=== PATIENT | male | born 1935 | race Caucasian/White ===

== ENCOUNTER → 2016-07-21 | Outpatient (CLI) | payer MEDICARE ==
[~2016-07-21] MED LIST: AMBIEN10 MG PO; ANTIVERT25 MG PO; ASPIRIN81 M1 PO; B121000 MCG/2 IM; BICALUTAMIDE50 MG PO; CAL MAG ZINC PO; CAL-MAG TABLET1 EACH PO; CHILDREN'S CHEW81 MG PO; CITALOPRAM20 MG PO; CYMBALTA30 M1 PO; Catapres-Tts 10.1 MG PO; DELTASONE5 MG PO; FLAX SEED OIL1000 M2 PO; FLAX SEED OIL1000 MG PO; FLEXERIL5 MG PO; HYDRALAZINE HCL50 MG PO; HYDRALAZINE HYD50 MG PO; HYDROCODON-ACETAMINO; LAMICTAL150 MG PO; LISINOPRIL40 MG PO; LOPRESSOR100 MG PO; METFORMIN HCL500 MG PO; METFORMIN500 MG PO; METOPROLOL100 MG PO; MULTIPLE VITAMI1 TA3 PO; MULTIVITAMINS1 EACH PO; NATURE'S BLEND F1 MG PO; NORCO 5-325 TA1 EACH PO; PANTOPRAZOLE SO40 MG PO; PANTOPRAZOLE SOD DR; POTASSIUM99 M3 PO; PROTONIX40 MG PO; SIMVASTATIN40 MG PO; SINGULAIR10 MG PO; TEMAZEPAM15 MG PO; TEMAZEPAM30 MG PO; TERAZOSIN HCL5 M1 PO; TERAZOSIN HYDROC5 MG PO; VICODIN 5/500 505 MG PO; VITAMIN D1000 IU PO; VOLTAREN50 M1 PO
== END | disposition home or self-care (01) ==
LOC: LAB 09:29
DX: C61 Malignant neoplasm of prostate (principal); E11.59 Type 2 diabetes mellitus with other circulatory complications; I25.10 Atherosclerotic heart disease of native coronary artery without angina pectoris

== ENCOUNTER → 2016-11-16 | Outpatient (CLI) | payer MEDICARE ==
[2016-11-16 09:44] LABS: BASO % 0.3 % (0.0-1.0); EOS # 0.3 10*3/uL (0.0-0.4); EOS % 4.2 % (1.0-4.0); HEMATOCRIT 37.8 % (42.0-52.0); HEMOGLOBIN 12.3 g/dl (14.0-18.0); LYMPH # 1.7 10*3/uL (1.3-4.4); LYMPH % 21.4 % (27.0-41.0); MEAN CELL VOLUME 93.8 fl (80.0-94.0); MEAN CORPUSCULAR HGB 30.5 pg (27.0-31.0); MEAN CORPUSCULAR HGB CONC 32.5 g/dl (33.0-37.0); MEAN PLATELET VOLUME 8.7 fl (9.6-12.3); MONO # 0.5 10*3/uL (0.1-1.0); NEUT # 5.4 10*3/uL (2.3-7.9); PLATELET COUNT AUTOMATED 202 10*3/uL (130-400); RED BLOOD COUNT 4.03 10*6/uL (4.50-5.90); RED CELL DISTRI WIDTH 14.3 % (0-14.5); WHITE BLOOD COUNT 7.9 10*3/uL (4.8-10.8)
[2016-11-16 10:14] LABS: ALBUMIN 3.7 gm/dl (3.1-4.5); BILIRUBIN, TOTAL 0.5 mg/dl (0.2-1.0); POTASSIUM 3.9 mmol/L (3.5-5.1)
== END | disposition home or self-care (01) ==
LOC: LAB 09:20
PROVIDERS: Internal Medicine Hematology & Oncology
DX: C61 Malignant neoplasm of prostate (principal); E11.59 Type 2 diabetes mellitus with other circulatory complications; I25.10 Atherosclerotic heart disease of native coronary artery without angina pectoris

== ENCOUNTER → 2016-12-17 | Outpatient (CLI) | payer MEDICARE | END | disposition home or self-care (01) | LOC: LAB 08:49 | DX: C61 Malignant neoplasm of prostate (principal) ==

== ENCOUNTER 2017-06-29 09:59 | Inpatient (IN) | payer MEDICARE ==
[~2017-06-29] VITALS: Ht 198.1 cm; Wt 79.4 kg
[2017-06-29] VITALS (9 sets, daily range): BP systolic 153–193; BP diastolic 81–103
--- NOTE | ~2017-06-29 | PR ---
[place], [place] PROGRESS NOTE NAME: GLENYS GARDINER JR [facility] #: [id number] UNIT #: [id number] ROOM: 523 DOCTOR: MARIAM MEJIA MD BIRTHDATE: [birth year] DOS: SUBJECTIVE: The patient is doing fine without any complaints. Denies any chest pains, palpitations. OBJECTIVE: VITAL SIGNS: Graphic trend shows a pressure 148/54, pulse of 56, respirations 20, temperature 98.1. LUNGS: Clear. HEART: Regular. ABDOMEN: Obese. EXTREMITIES: Without any edema. ASSESSMENT AND PLAN: 1. Vertigo from vestibular neuronitis, which seems to be resolving. 2. Benign hypertension, poorly controlled, adjustments in medicines were made and the pressures have improved. 3. Nonsustained ventricular tachycardia. Magnesium and potassium levels are pending. The patient is ordered a consultation with Dr. Paiz. He does have history of coronary disease and is on beta blockers which are being continued. 4. Type 2 diabetes mellitus, insulin-dependent. Blood sugars on the low side, possibly from a stricter diet here. We will discontinue Amaryl and metformin. MARIAM MEJIA MD CM:PNTRANS [id number] MARIAM MEJIA MD 07/02/17 0939 interface
--- NOTE | ~2017-06-29 | CON ---
[place], [place] REPORT OF CONSULTATION [facility]: [id number] UNIT #: [id number] ROOM: 523 DOCTOR: JASVIR CORBIN MD BIRTHDATE: [birth year] DOS: HISTORY OF PRESENT ILLNESS: This is a very pleasant 82-year-old -[place] gentleman with a history of essential hypertension, type 2 diabetes mellitus and prostate cancer. He has never had a heart attack, heart failure, any rhythm disorder of the heart, stroke, COPD or kidney problems. He had a Lexiscan Cardiolite study done recently and it was negative. He also had an echocardiogram. I saw him in my office just a few weeks ago. He was admitted to the hospital because of being unsteady and off balance. He had almost fallen but did not hurt himself. He had no spinning sensation, did not have any palpitations. He did feel a little nauseated at that time and also was little clammy, but without any ringing in the ears or spinning sensation. He has not had any PND, orthopnea, or swelling of the lower extremity and has not had any palpitations. I was asked to see him because of 6 beat monomorphic ventricular tachycardia, rate of about 130 beats per minute. PHYSICAL EXAMINATION: GENERAL: This is a patient who is a very pleasant, alert, oriented. He is very charming, good complexion, no thyromegaly or finger clubbing. VITAL SIGNS: Pulse is 72 regular, blood pressure 172/93 and now it is 145/75. NECK: JVP is normal. There is no carotid bruit. HEART: There is no cardiomegaly. Auscultation reveals no murmurs or rubs. EXTREMITIES: He has no edema in the lower extremity. Pedal pulses are palpable. RESPIRATORY: Percussion note is normal and auscultation with just a few crackles in the left lower zone, which improved with deep breaths. No chest wall tenderness. DIAGNOSTIC STUDIES: An ECG on admission showed normal sinus rhythm and a normal pattern and the monitor has shown rare PVCs and one 6-beat monomorphic ventricular tachycardia, as I mentioned above. Potassium was over . Magnesium was 1.8. IMPRESSION: This patient had a very short nonsustained ventricular tachycardia. I believe this has no clinical significance and does not require any further workup. I thank you for this consult. [place], [place] REPORT OF CONSULTATION NAME: ABDIFATAH WHITLEYGLENYS UNIT #: [id number] ROOM: 523 DOCTOR: JASVIR CORBIN MD BIRTHDATE: [birth year] JASVIR CORBIN MD CM:CONSTR:REPORT OF CONSULTATION 1850 07/02/17 7594 interface
--- NOTE | ~2017-06-29 | WRIGHTHP ---
[place], [place] PATIENT HISTORY AND PHYSICAL EXAM NAME: GLENYS GARDINER JR [facility] #: [id number] UNIT #: [id number] ROOM: 523 DOCTOR: MARIAM MEJIA MD BIRTHDATE: [birth year] DOS: 06/29/2017 HISTORY OF PRESENT ILLNESS: This patient is very well known to us. He states that he was fine until he went to bed yesterday evening. He woke up in the middle of the night to go to the bathroom, had a severe hot flash and then he became extremely dizzy and had to hold onto the bed to walk to the bathroom, said he really could not walk and finally this persisted during the night into the morning and so he decided to come in to the emergency room. He denies having any chest pains, palpitations, not have any fever or chills, does not have any abdominal pain, nausea, any emesis. Does have a slight cough. PAST MEDICAL HISTORY: Significant for: 1. Benign hypertension. 2. Hospitalization in 2016 with similar episode of dizziness. 3. CA prostate, was on Lupron. 4. Type 2 diabetes mellitus, non-insulin dependent. 5. Recent negative stress test. MEDICATIONS: Aspirin 81, vitamin D 400 units twice a day, citalopram 20 daily, ____ B12 1000 mcg daily, glimepiride 2 b.i.d., metformin 500 q.i.d., metoprolol 25 b.i.d., Protonix 40 daily, simvastatin 40 daily, terazosin 5 mg twice a day. SOCIAL HISTORY: Nonsmoker, does not use any alcohol. Lives at home with his . PHYSICAL EXAMINATION: GENERAL: He is awake and alert and oriented this morning, sitting up and trying to get washed up this morning. He states that his dizziness is almost completely gone. VITAL SIGNS: Blood pressure is 146/82, pulse of 68, respirations 20, temperature 98.0. NECK: Supple. HEENT: Ears do not show any evidence of fluid or serous otitis media. LUNGS: Diminished breath sounds. HEART: Regular. ABDOMEN: Obese. EXTREMITIES: Without any edema. LABORATORY DATA: WBC count is normal at 8.8, hemoglobin 12.9, hematocrit 39.3, platelets 258. Lactic acid 2.1. Comprehensive glucose 154, BUN 16, creatinine 1.19. Electrolytes normal. CT of the head shows small vessel disease. ASSESSMENT AND PLAN: 1. Dizziness with inability to ambulate. The patient has been admitted. PT/OT has been consulted. 2. Dizziness with vertigo-like symptoms most likely acute vestibular neuronitis, most likely viral in nature. This could explain the elevated lactic acid. IV fluids were given. Lactic acid has come down. It is self-limiting illness. No need for any other treatment. 3. Poorly controlled hypertension. Medications were restarted this morning. [place], [place] PATIENT HISTORY AND PHYSICAL EXAM NAME: GLENYS GARDINER JR UNIT #: [id number] ROOM: 523 DOCTOR: MARIAM MEJIA MD BIRTHDATE: [birth year] The pressures within normal limits. 4. Type 2 diabetes mellitus, non-insulin dependent. Blood sugars have been checked and they are controlled. MARIAM MEJIA MD CM:HISPHYS:PATIENT HISTORY AND PHYSICAL EXAMINATION 0829 [id number] MARIAM MEJIA MD 07/01/17 1047 interface
--- NOTE | ~2017-06-29 | PR ---
[place], [place] PROGRESS NOTE NAME[id number] UNIT #: [id number] ROOM: 523 DOCTOR: MARIAM MEJIA MD BIRTHDATE: [birth year] DOS: 07/03/2017 SUBJECTIVE: The patient is not having any complaints, did have a restful night. I appreciate Dr. Paiz's input. OBJECTIVE: VITAL SIGNS: Blood pressure is 148/64, pulse of 52, respirations 16, temperature 98. LUNGS: Clear. HEART: Regular. ABDOMEN: Obese, soft. EXTREMITIES: Without any edema. ASSESSMENT AND PLAN: 1. Benign hypertension, controlled. 2. Nonsustained ventricular tachycardia, no workup planned. Appreciate Dr. Paiz's input. 3. Type 2 diabetes mellitus, non-insulin dependent. Blood sugars continued to be on the low side. The meds on hold here. We will restart when he goes home. 4. Dizziness and vertigo-like symptoms from vestibular neuronitis, which is resolved. MARIAM MEJIA MD CM:PNTRANS 0739 [id number] MARIAM MEJIA MD 07/03/17 1051 interface
--- NOTE | ~2017-06-29 | PR ---
[place], [place] PROGRESS NOTE [id number] UNIT #: [id number] ROOM: 523 DOCTOR: MARIAM MEJIA MD BIRTHDATE: [birth year] DOS: 07/01/2017 SUBJECTIVE: The patient has had noticed increasing blood pressure during the night. OBJECTIVE: VITAL SIGNS: Graphic trend this morning shows a pressure of 148/70, pulse of 76, respirations 18, temperature 98. LUNGS: Clear. HEART: Regular. ABDOMEN: Obese, soft. EXTREMITIES: Without any edema. ASSESSMENT AND PLAN: 1. Vertigo, possibly from vestibular neuronitis. The patient is on Antivert and this most likely is a viral etiology and should resolve on its own and his symptoms are improving. 2. Benign hypertension, poorly controlled. Readjust medications. 3. History of coronary artery disease, no recent complaints of chest pain. MARIAM MEJIA MD CM:PNTRANS 0849 [id number] MARIAM MEJIA MD 07/01/17 0959 interface
--- NOTE | ~2017-06-29 | DS ---
[place], [place] DISCHARGE SUMMARY [facility]: [id number] UNIT #: [id number] ROOM: 523 DOCTOR: MARIAM MEJIA MD BIRTHDATE: [birth year] DOS: 07/03/2017 DIAGNOSES: 1. Vertigo from vestibular neuronitis, resolved. 2. Benign hypertension, poorly controlled. 3. Nonsustained ventricular tachycardia. 4. CA prostate. 5. Type 2 diabetes mellitus, non-insulin dependent, with hypoglycemia. 6. Negative recent stress test. HOSPITAL COURSE: This patient is 82 years old, presents with complaints of extreme dizziness and inability to walk. Please refer to H and P for details. After admission, he was found to have vestibular neuronitis, which is most likely a benign self-limiting viral illness which did resolve on its own. The patient was noted to have extreme high blood pressures and so adjustments in medicines were made, which has controlled it. Sugars have been running low, his anti-diabetics were put on hold. He developed a 6-beat monomorphic ventricular tachycardia. Magnesium and potassium levels were normal. The patient was seen by Dr. Paiz, suggested no further workup or new medications. This morning, the patient is stable. The plan is to discharge to home and follow up as an outpatient. DISCHARGE MEDICATIONS: Amlodipine 10 daily, metformin 500 q.i.d., terazosin 5 b.i.d., simvastatin 40 daily, Protonix 40 daily, citalopram 20 daily, aspirin 81 daily, multivitamin 1 tablet daily, metoprolol 25 b.i.d., vitamin B12 1000 units daily, vitamin D 400 units daily, glimepiride 2 mg b.i.d. His anti-diabetics have been restarted since he is going home and his diet may not be that strict. His CT of the head was negative here. MARIAM MEJIA MD CM:DISCHHORTENSIA 0743 5 MARIAM MEJIA MD 07/03/17803 interface
[2017-06-29 11:03] LABS: BASO % 0.2 % (0.0-1.0); EOS # 0.2 10*3/uL (0.0-0.4); EOS % 2.6 % (1.0-4.0); HEMATOCRIT 39.3 % (42.0-52.0); HEMOGLOBIN 12.9 g/dl (14.0-18.0); LYMPH # 1.8 10*3/uL (1.3-4.4); LYMPH % 20.1 % (27.0-41.0); MEAN CORPUSCULAR HGB 30.2 pg (27.0-31.0); MEAN CORPUSCULAR HGB CONC 32.8 g/dl (33.0-37.0); MEAN PLATELET VOLUME 8.9 fl (9.6-12.3); MONO # 0.5 10*3/uL (0.1-1.0); MONO % 5.6 % (3.0-9.0); NEUT # 6.2 10*3/uL (2.3-7.9); NEUT % 71.3 % (47.0-73.0); PLATELET COUNT AUTOMATED 248 10*3/uL (130-400); RED BLOOD COUNT 4.27 10*6/uL (4.50-5.90); RED CELL DISTRI WIDTH 13.7 % (0-14.5); WHITE BLOOD COUNT 8.8 10*3/uL (4.8-10.8)
[2017-06-29 11:12] LABS: ACT PARTIAL THROMBO TIME 21.6 SECONDS (20.8-31.5)
[2017-06-29 11:19] LABS: ALBUMIN 4.1 gm/dl (3.1-4.5); ALKALINE PHOSPHATASE 121 U/L (45-117); BUN 16 mg/dl (7-24); CHLORIDE 107 mmol/L (98-107); CREATININE 1.19 mg/dL (0.70-1.30); LIPASE 86 U/L (73-393); POTASSIUM 4.1 mmol/L (3.5-5.1); SGOT/AST 16 IU/L (3-35); SGPT/ALT 21 U/L (12-78); SODIUM 139 mmol/L (136-145); TOTAL PROTEIN 7.7 gm/dL (6.4-8.2); TROPONIN I < 0.015 ng/ml (<0.045)
[2017-06-29 12:58] LABS: BILIRUBIN NEGATIVE (NEGATIVE); BLOOD NEGATIVE (NEGATIVE); CLARITY CLEAR (CLEAR); COLOR YELLOW (YELLOW); GLUCOSE NEGATIVE (NEGATIVE); KETONE NEGATIVE (NEGATIVE); LEUKO ESTERASE NEGATIVE (NEGATIVE); NITRITE NEGATIVE (NEGATIVE); UROBILINOGEN 0.2 E.U./dl (0.2-1.0)
[2017-06-29] MEDS ORDERED: METOPROLOL25 MG PO (14:39)
[2017-06-29] MEDS ORDERED: B12,B-12,B 12500 MC1 PO (16:02)
[2017-06-29] MEDS ORDERED: VITAMIN D3400 UNIT PO (16:04)
[2017-06-29] MEDS ORDERED: AMARYL2 MG PO (16:05)
[2017-06-30] VITALS: BP 159/81
[2017-06-30 06:30] VITALS: BP 138/88
[2017-06-30 08:00] VITALS: BP 146/82
[2017-06-30 10:18] VITALS: BP 138/88
[2017-06-30 16:00] VITALS: BP 177/83
[2017-06-30 20:00] VITALS: BP 178/88
[2017-07-01] VITALS: BP 165/71
[2017-07-01 12:00] VITALS: BP 136/67
[2017-07-01 16:00] VITALS: BP 140/65
[2017-07-01 20:00] VITALS: BP 145/72
[2017-07-02] VITALS: BP 162/82; BP 172/79
[2017-07-02 04:00] VITALS: BP 148/54
[2017-07-02 08:12] VITALS: BP 157/77
[2017-07-02 12:37] VITALS: BP 150/72
[2017-07-02 16:00] VITALS: BP 145/75
[2017-07-02 20:21] VITALS: BP 141/73
[2017-07-03] VITALS: BP 148/64
[2017-07-03] MEDS ORDERED: AMLODIPINE BESY10 MG PO (07:38)
== END 2017-07-03 09:40 | disposition home or self-care (01) | DRG 149 ==
LOC: ED 09:59 → EDHOLD 12:32 → 5E 12:32
PROVIDERS: Emergency Medicine
DX: H81.20 Vestibular neuronitis, unspecified ear (principal); I47.2 Ventricular tachycardia; E11.649 Type 2 diabetes mellitus with hypoglycemia without coma; C61 Malignant neoplasm of prostate; B34.9 Viral infection, unspecified; I10 Essential (primary) hypertension; I25.10 Atherosclerotic heart disease of native coronary artery without angina pectoris; R26.81 Unsteadiness on feet; Z88.0 Allergy status to penicillin; Z79.82 Long term (current) use of aspirin; Z79.84 Long term (current) use of oral hypoglycemic drugs; Z79.899 Other long term (current) drug therapy

== ENCOUNTER → 2017-07-18 | Outpatient (CLI) | payer MEDICARE ==
[~2017-07-18] MED LIST changes: +AMARYL2 MG PO; +AMLODIPINE BESY10 MG PO; +B12,B-12,B 12500 MC1 PO; +METOPROLOL25 MG PO; +VITAMIN D3400 UNIT PO
[2017-07-18 11:17] LABS: BASO % 0.3 % (0.0-1.0); EOS # 0.3 10*3/uL (0.0-0.4); EOS % 3.3 % (1.0-4.0); HEMATOCRIT 36.4 % (42.0-52.0); HEMOGLOBIN 12.2 g/dl (14.0-18.0); LYMPH % 20.7 % (27.0-41.0); MEAN CELL VOLUME 92.9 fl (80.0-94.0); MEAN CORPUSCULAR HGB 31.1 pg (27.0-31.0); MEAN CORPUSCULAR HGB CONC 33.5 g/dl (33.0-37.0); MEAN PLATELET VOLUME 9.3 fl (9.6-12.3); MONO # 0.6 10*3/uL (0.1-1.0); MONO % 6.3 % (3.0-9.0); NEUT # 6.5 10*3/uL (2.3-7.9); PLATELET COUNT AUTOMATED 254 10*3/uL (130-400); RED BLOOD COUNT 3.92 10*6/uL (4.50-5.90); RED CELL DISTRI WIDTH 13.4 % (0-14.5); WHITE BLOOD COUNT 9.4 10*3/uL (4.8-10.8)
[2017-07-18 11:52] LABS: ALKALINE PHOSPHATASE 120 U/L (45-117); BUN 19 mg/dl (7-24); CHLORIDE 108 mmol/L (98-107); CREATININE 1.28 mg/dL (0.70-1.30); POTASSIUM 4.1 mmol/L (3.5-5.1); SGOT/AST 15 IU/L (3-35); SGPT/ALT 19 U/L (12-78); SODIUM 138 mmol/L (136-145); TOTAL PROTEIN 7.3 gm/dL (6.4-8.2)
== END | disposition home or self-care (01) ==
LOC: LAB 10:18
PROVIDERS: Internal Medicine Hematology & Oncology
DX: C61 Malignant neoplasm of prostate (principal)

== ENCOUNTER → 2017-08-29 | Outpatient (CLI) | payer MEDICARE ==
[2017-08-29 12:52] LABS: BASO % 0.3 % (0.0-1.0); EOS # 0.4 10*3/uL (0.0-0.4); EOS % 3.5 % (1.0-4.0); HEMATOCRIT 39.4 % (42.0-52.0); HEMOGLOBIN 12.4 g/dl (14.0-18.0); LYMPH # 1.7 10*3/uL (1.3-4.4); MEAN CELL VOLUME 94.7 fl (80.0-94.0); MEAN CORPUSCULAR HGB 29.8 pg (27.0-31.0); MEAN CORPUSCULAR HGB CONC 31.5 g/dl (33.0-37.0); MEAN PLATELET VOLUME 9.5 fl (9.6-12.3); MONO # 0.8 10*3/uL (0.1-1.0); MONO % 7.9 % (3.0-9.0); NEUT # 7.1 10*3/uL (2.3-7.9); NEUT % 70.8 % (47.0-73.0); PLATELET COUNT AUTOMATED 250 10*3/uL (130-400); RED BLOOD COUNT 4.16 10*6/uL (4.50-5.90); RED CELL DISTRI WIDTH 13.8 % (0-14.5); WHITE BLOOD COUNT 10.1 10*3/uL (4.8-10.8)
[2017-08-29 13:22] LABS: ALBUMIN 3.8 gm/dl (3.1-4.5); BILIRUBIN, DIRECT 0.2 mg/dL (0.0-0.2); CREATININE 1.46 mg/dL (0.70-1.30); TOTAL PROTEIN 7.1 gm/dL (6.4-8.2)
== END | disposition home or self-care (01) ==
LOC: LAB 11:57
DX: C61 Malignant neoplasm of prostate (principal); E11.59 Type 2 diabetes mellitus with other circulatory complications; I25.10 Atherosclerotic heart disease of native coronary artery without angina pectoris

== ENCOUNTER 2017-09-10 07:03 | Inpatient (IN) | payer MEDICARE ==
[~2017-09-10] VITALS: Ht 167.6 cm; Wt 77.1 kg
[2017-09-10] VITALS (7 sets, daily range): BP systolic 142–172; BP diastolic 67–81
--- NOTE | ~2017-09-10 | WRIGHTHP ---
[place], [place] PATIENT HISTORY AND PHYSICAL EXAM NAME: GLENYS GARDINER JR [facility] #: [id number] UNIT #: [id number] ROOM: 408 DOCTOR: MARIAM MEJIA MD BIRTHDATE: [birth year] DOS: HISTORY OF PRESENT ILLNESS: The patient is 82-year-old. The patient is very well known to us. The patient states that for the last few weeks, he has been increasingly tired after a new medication was started for CA prostate. He also is not allowed to eat 2 hours before and 2 hours after the medicine is taken every day, so his appetite is extremely poor. Yesterday, his was unable to wake him up, so ambulance was called and he was found to be quite hypoglycemic. The family thought he was having a stroke because he had confusion and slurred speech. EMT found out that his blood sugar was in the 50s, was transferred to the ER where he continued to remain in the low 50s at times, so the patient was admitted. He also had an elevated white cell count. This morning, he looks tired, does not have any chest pains or palpitations, does not have any fever or chills, does not have any abdominal pain, nausea, any emesis. PAST MEDICAL HISTORY: significant for: 1. CA prostate with recurrence. 2. Benign hypertension. 3. Type 2 diabetes mellitus, non-insulin dependent. 4. History of nonsustained V-tach. 5. History of vestibular neuronitis. MEDICATIONS: That he is currently on are Zytiga 2 hours after, 2 hours before, aspirin 81 daily, vitamin D 400 units twice a day, citalopram 20 daily, diltiazem 60 b.i.d., glimepiride 2 mg b.i.d., meclizine 12.5 t.i.d., metformin 500 q.i.d., metoprolol 25 b.i.d., multivitamin 1 tablet daily, Protonix 40 daily, prednisone 5 daily, simvastatin 40 daily, terazosin 5 mg b.i.d. SOCIAL HISTORY: Nonsmoker, does not use any alcohol. OBJECTIVE EXAMINATION: GENERAL: He is awake and alert and oriented. His affect seems to be slightly flat. VITAL SIGNS: Blood pressure is 118/61, pulse of 70s, respirations 18, temperature 98.5. LUNGS: Clear. HEART: Regular. ABDOMEN: Obese, soft, nontender. EXTREMITIES: Without any edema. ASSESSMENT AND PLAN: 1. Type 2 diabetes mellitus, non-insulin dependent, with severe hypoglycemia from poor p.o. intake. The patient's metformin and Amaryl were discontinued and IV fluids were given. Blood sugars have come up into the 200s. We will start a low dose of Amaryl today. 2. Elevated white cell count, low grade fever, meeting sepsis criteria. Awaiting urine and blood cultures. The patient is placed on Levaquin. 3. Cancer of prostate, most likely has underlying urinary tract infection. Continue home medications. 4. Benign hypertension, controlled. [place], [place] PATIENT HISTORY AND PHYSICAL EXAM NAME: GLENYS GARDINER JR UNIT #: [id number] ROOM: [facility] DOCTOR: MARIAM MEJIA MD BIRTHDATE: [birth year] MARIAM MEJIA MD CM:HISPHYS:PATIENT HISTORY AND PHYSICAL EXAMINATION 0750 0830 MARIAM MEJIA MD 09/11/17 0829 interface
--- NOTE | ~2017-09-10 | PR ---
[place], [place] PROGRESS NOTE NAME: GLENYS GARDINER JR [facility] #: [id number] UNIT #: [id number] ROOM: 408 DOCTOR: MARIAM MEJIA MD BIRTHDATE: [birth year] DOS: 09/13/2017 SUBJECTIVE: The patient is sitting up in a chair. He did walk with therapy and was not as tired as yesterday. OBJECTIVE: VITAL SIGNS: Graphic trend shows a pressure of 164/77, pulse of 74, respirations 16, temperature 98.3. LUNGS: Clear. HEART: Regular. ABDOMEN: Soft, nontender. EXTREMITIES: Without any edema. LABORATORY DATA: White cell count is slightly elevated at 15.5, but then the cultures so far are negative including blood and urine. Glucose 122, BUN 25, creatinine 0.09, sodium 138, potassium 4.0, chloride 108. WBC count is 15.5, hemoglobin 10.4, platelets 377. ASSESSMENT AND PLAN: 1. Type 2 diabetes mellitus with severe hypoglycemia. This has resolved. Blood sugar was in the low to high 100s, restarted his home medication. 2. Elevated white cell count of unknown etiology. Blood cultures and urine culture have been negative. The patient will be switched to p.o. antibiotics and plan to discharge him to home today. 3. Adult failure to thrive. The patient to continue therapy at home. 4. CA prostate, recurrence on chemotherapy. Follow up with Dr. Barbosa. MARIAM MEJIA MD CM:PNTRANS 0820 0934 MARIAM MEJIA MD 09/13/17 1314 interface
--- NOTE | ~2017-09-10 | DS ---
[place], [place] DISCHARGE SUMMARY NAME: GLENYS GARDINER JR [facility] #: [id number] UNIT #: [id number] ROOM: 408 DOCTOR: MARIAM MEJIA MD BIRTHDATE: [birth year] DOS: 09/13/2017 DIAGNOSES: 1. Type 2 diabetes mellitus with severe hypoglycemia. 2. Adult failure to thrive. 3. Elevated white cell count with negative cultures, sepsis ruled out. 4. Recurrent cancer of prostate, on chemotherapy. 5. Benign hypertension. MEDICATIONS: Same as on discharge, only new prescription given was Cipro 500 b.i.d. for 5 days. HOSPITAL COURSE: The patient is 82-year-old. The patient is very well known to us. He was started on a new medication for CA prostate and he was advised not to eat before the medication was started and also for 2 hours after the medicine was taken in the morning. His appetite has been extremely poor since the medicine was started. His noted that it was difficult to wake him up and ambulance was called. They found out that he was hypoglycemic, was transferred to the Emergency Room, after evaluation he was admitted. His blood sugar remained in the low 50s here in the Emergency Room. After admission, the patient was placed on IV fluids. His anti-diabetics were held. His appetite seems to be improving after admission. He had an elevated white cell count with lactic acidosis. Lactic acid levels have normalized. White cell count has not normalized. The cultures of both urine and blood have come back negative. The patient does not have a fever, does not appear toxic. His blood sugars did bounce back up into the 400s. His home medications were restarted and it is controlled this morning in the low 100s. The plan therefore is to discharge him to home to be followed as an outpatient. PT/OT consultation was obtained and he has agreed to have home PT, OT. MARIAM MEJIA MD CM:DISCHARG 0823 5 MARIAM MEJIA MD 09/13/1715 interface
--- NOTE | ~2017-09-10 | PR ---
[place], [place] PROGRESS NOTE NAME: GLENYS GARDINER JR UNIT #: [id number] ROOM: 408 DOCTOR: MARIAM MEJIA MD BIRTHDATE: [birth year] DOS: 09/12/2017 SUBJECTIVE: The patient appears quite tired this morning. He states that he does not have much energy. OBJECTIVE: VITAL SIGNS: Blood pressure is 157/84, pulse of 109, respirations 20, temperature 98.3. LUNGS: Diminished breath sounds, clear. HEART: Regular. ABDOMEN: Obese, soft. EXTREMITIES: Without any edema. ASSESSMENT AND PLAN: 1. Type 2 diabetes mellitus with hypoglycemia, was restarted on the Amaryl. Blood sugars in the 134 this morning. The patient is stable in that regards. 2. Adult failure to thrive. PT/OT evaluation will be obtained. The patient was advised for rehab placement, but he declined. We will await further therapy evaluation to see whether he would be a candidate for either home therapy or long-term placement. 3. Elevated white cell count with lactic acidosis. Lactic acidosis is corrected. White cell count has come down. Cultures are negative. MARIAM MEJIA MD CM:PNTRANS 1 MARIAM MEJIA MD 09/12/1701 interface
[2017-09-10 07:42] LABS: BASO % 0.3 % (0.0-1.0); EOS # 0.1 10*3/uL (0.0-0.4); HEMATOCRIT 35.5 % (42.0-52.0); HEMOGLOBIN 11.5 g/dl (14.0-18.0); LYMPH # 0.9 10*3/uL (1.3-4.4); LYMPH % 6.9 % (27.0-41.0); MEAN CELL VOLUME 93.7 fl (80.0-94.0); MEAN CORPUSCULAR HGB 30.3 pg (27.0-31.0); MEAN CORPUSCULAR HGB CONC 32.4 g/dl (33.0-37.0); MONO # 0.8 10*3/uL (0.1-1.0); MONO % 5.9 % (3.0-9.0); NEUT # 11.7 10*3/uL (2.3-7.9); NEUT % 85.2 % (47.0-73.0); PLATELET COUNT AUTOMATED 256 10*3/uL (130-400); RED BLOOD COUNT 3.79 10*6/uL (4.50-5.90); RED CELL DISTRI WIDTH 14.2 % (0-14.5); WHITE BLOOD COUNT 13.7 10*3/uL (4.8-10.8)
[2017-09-10 08:01] LABS: ALBUMIN 2.9 gm/dl (3.1-4.5); ALKALINE PHOSPHATASE 125 U/L (45-117); BUN 22 mg/dl (7-24); CHLORIDE 104 mmol/L (98-107); CREATININE 1.47 mg/dL (0.70-1.30); POTASSIUM 3.8 mmol/L (3.5-5.1); SGOT/AST 29 IU/L (3-35); SGPT/ALT 23 U/L (12-78); SODIUM 137 mmol/L (136-145); TOTAL PROTEIN 7.7 gm/dL (6.4-8.2)
[2017-09-10 08:05] LABS: TROPONIN I < 0.015 ng/ml (<0.045)
[2017-09-10] MEDS ORDERED: ZYTIGA250 M1 PO (10:11)
[2017-09-10] MEDS ORDERED: PREDNISONE5 MG PO (10:12)
[2017-09-10] MEDS ORDERED: DILTIAZEM60 MG PO (10:20)
[2017-09-10] MEDS ORDERED: MECLIZINE HYD12.5 MG PO (11:07)
[2017-09-10 15:59] LABS: BILIRUBIN NEGATIVE (NEGATIVE); BLOOD 2+ (NEGATIVE); CLARITY SL CLOUDY (CLEAR); COLOR YELLOW (YELLOW); GLUCOSE 1+ (NEGATIVE); KETONE NEGATIVE (NEGATIVE); LEUKO ESTERASE 3+ (NEGATIVE); NITRITE NEGATIVE (NEGATIVE); PH 5.5 (5.0-9.0); SPECIFIC GRAVITY <= 1.005 (1.005-1.030)
[2017-09-10 16:09] LABS: BACTERIA 4+; RBC TNTC rbc/hpf (0-2); WBC TNTC wbc/hpf (0-5)
[2017-09-11] VITALS: BP 118/61
[2017-09-11 06:34] LABS: BASO # 0.1 10*3/uL (0.0-0.1); BASO % 0.4 % (0.0-1.0); EOS # 0.6 10*3/uL (0.0-0.4); EOS % 5.4 % (1.0-4.0); HEMATOCRIT 32.6 % (42.0-52.0); HEMOGLOBIN 10.5 g/dl (14.0-18.0); LYMPH # 1.4 10*3/uL (1.3-4.4); LYMPH % 11.6 % (27.0-41.0); MEAN CELL VOLUME 93.4 fl (80.0-94.0); MEAN CORPUSCULAR HGB 30.1 pg (27.0-31.0); MEAN CORPUSCULAR HGB CONC 32.2 g/dl (33.0-37.0); MEAN PLATELET VOLUME 9.1 fl (9.6-12.3); MONO % 8.4 % (3.0-9.0); NEUT # 8.8 10*3/uL (2.3-7.9); NEUT % 73.7 % (47.0-73.0); PLATELET COUNT AUTOMATED 295 10*3/uL (130-400); RED BLOOD COUNT 3.49 10*6/uL (4.50-5.90); RED CELL DISTRI WIDTH 14.2 % (0-14.5); WHITE BLOOD COUNT 11.9 10*3/uL (4.8-10.8)
[2017-09-11 07:07] LABS: BUN 20 mg/dl (7-24); CHLORIDE 110 mmol/L (98-107); CREATININE 1.19 mg/dL (0.70-1.30); POTASSIUM 4.2 mmol/L (3.5-5.1); SODIUM 139 mmol/L (136-145)
[2017-09-11 08:00] VITALS: BP 154/65
[2017-09-11 12:00] VITALS: BP 148/66
[2017-09-11 16:00] VITALS: BP 166/76
[2017-09-11 20:00] VITALS: BP 176/75
[2017-09-12] VITALS: BP 157/81
[2017-09-12 08:00] VITALS: BP 146/79
[2017-09-12 12:00] VITALS: BP 139/64
[2017-09-12 16:00] VITALS: BP 139/90
[2017-09-12 20:00] VITALS: BP 118/70
[2017-09-13 00:34] VITALS: BP 164/77
[2017-09-13 07:00] LABS: BASO # 0.1 10*3/uL (0.0-0.1); BASO % 0.5 % (0.0-1.0); EOS # 0.7 10*3/uL (0.0-0.4); EOS % 4.3 % (1.0-4.0); HEMOGLOBIN 10.4 g/dl (14.0-18.0); LYMPH % 13.1 % (27.0-41.0); MEAN CELL VOLUME 92.5 fl (80.0-94.0); MEAN CORPUSCULAR HGB 30.1 pg (27.0-31.0); MEAN CORPUSCULAR HGB CONC 32.5 g/dl (33.0-37.0); MEAN PLATELET VOLUME 8.7 fl (9.6-12.3); MONO # 0.9 10*3/uL (0.1-1.0); MONO % 5.6 % (3.0-9.0); NEUT # 11.7 10*3/uL (2.3-7.9); NEUT % 75.8 % (47.0-73.0); PLATELET COUNT AUTOMATED 377 10*3/uL (130-400); RED BLOOD COUNT 3.46 10*6/uL (4.50-5.90); RED CELL DISTRI WIDTH 13.9 % (0-14.5); WHITE BLOOD COUNT 15.5 10*3/uL (4.8-10.8)
[2017-09-13 07:33] LABS: BUN 25 mg/dl (7-24); CHLORIDE 108 mmol/L (98-107); CREATININE 1.09 mg/dL (0.70-1.30); SODIUM 138 mmol/L (136-145)
[2017-09-13 08:00] VITALS: BP 136/76
[2017-09-13] MEDS ORDERED: CIPRO500 MG PO (08:12)
== END 2017-09-13 11:13 | disposition home or self-care (01) | DRG 638 ==
LOC: ED 07:03 → EDHOLD 08:33 → 4E 08:33
PROVIDERS: Emergency Medicine; Internal Medicine
DX: E11.649 Type 2 diabetes mellitus with hypoglycemia without coma (principal); E87.2 Acidosis; G92 Toxic encephalopathy; C61 Malignant neoplasm of prostate; I10 Essential (primary) hypertension; D72.829 Elevated white blood cell count, unspecified; Z95.1 Presence of aortocoronary bypass graft; R62.7 Adult failure to thrive; Z79.899 Other long term (current) drug therapy; Z88.0 Allergy status to penicillin; Z82.49 Family history of ischemic heart disease and other diseases of the circulatory system; Z82.3 Family history of stroke

== ENCOUNTER → 2017-10-04 | Outpatient (CLI) | payer MEDICARE ==
[~2017-10-04] MED LIST changes: +CIPRO500 MG PO; +DILTIAZEM60 MG PO; +MECLIZINE HYD12.5 MG PO; +PREDNISONE5 MG PO; +ZYTIGA250 M1 PO
[2017-10-04 10:21] LABS: BASO % 0.2 % (0.0-1.0); EOS # 0.5 10*3/uL (0.0-0.4); EOS % 6.1 % (1.0-4.0); HEMATOCRIT 35.5 % (42.0-52.0); HEMOGLOBIN 11.2 g/dl (14.0-18.0); LYMPH # 1.7 10*3/uL (1.3-4.4); LYMPH % 21.4 % (27.0-41.0); MEAN CELL VOLUME 96.7 fl (80.0-94.0); MEAN CORPUSCULAR HGB 30.5 pg (27.0-31.0); MEAN CORPUSCULAR HGB CONC 31.5 g/dl (33.0-37.0); MONO # 0.5 10*3/uL (0.1-1.0); MONO % 5.9 % (3.0-9.0); NEUT # 5.3 10*3/uL (2.3-7.9); NEUT % 66.2 % (47.0-73.0); PLATELET COUNT AUTOMATED 228 10*3/uL (130-400); RED BLOOD COUNT 3.67 10*6/uL (4.50-5.90); RED CELL DISTRI WIDTH 15.3 % (0-14.5)
[2017-10-04 10:50] LABS: ALBUMIN 3.3 gm/dl (3.1-4.5); ALKALINE PHOSPHATASE 127 U/L (45-117); BILIRUBIN, DIRECT 0.1 mg/dL (0.0-0.2); BUN 14 mg/dl (7-24); CHLORIDE 110 mmol/L (98-107); CREATININE 1.04 mg/dL (0.70-1.30); POTASSIUM 3.7 mmol/L (3.5-5.1); SGOT/AST 24 IU/L (3-35); SGPT/ALT 36 U/L (12-78); SODIUM 144 mmol/L (136-145)
== END | disposition home or self-care (01) ==
LOC: LAB 09:31
PROVIDERS: Internal Medicine Hematology & Oncology
DX: Z51.11 Encounter for antineoplastic chemotherapy (principal); C61 Malignant neoplasm of prostate; I25.10 Atherosclerotic heart disease of native coronary artery without angina pectoris; E11.59 Type 2 diabetes mellitus with other circulatory complications

== ENCOUNTER 2017-11-05 19:25 | Emergency (ER) | payer MEDICARE ==
[~2017-11-05] VITALS: Ht 172.7 cm; Wt 77.1 kg
[2017-11-05 19:44] LABS: BASO % 0.2 % (0.0-1.0); EOS # 0.3 10*3/uL (0.0-0.4); EOS % 4.2 % (1.0-4.0); HEMATOCRIT 35.9 % (42.0-52.0); HEMOGLOBIN 11.8 g/dl (14.0-18.0); LYMPH # 2.2 10*3/uL (1.3-4.4); LYMPH % 26.6 % (27.0-41.0); MEAN CELL VOLUME 95.2 fl (80.0-94.0); MEAN CORPUSCULAR HGB 31.3 pg (27.0-31.0); MEAN CORPUSCULAR HGB CONC 32.9 g/dl (33.0-37.0); MONO # 0.6 10*3/uL (0.1-1.0); MONO % 7.5 % (3.0-9.0); NEUT # 4.9 10*3/uL (2.3-7.9); NEUT % 61.1 % (47.0-73.0); PLATELET COUNT AUTOMATED 226 10*3/uL (130-400); RED BLOOD COUNT 3.77 10*6/uL (4.50-5.90); RED CELL DISTRI WIDTH 14.5 % (0-14.5); WHITE BLOOD COUNT 8.1 10*3/uL (4.8-10.8)
[2017-11-05 19:54] LABS: ACT PARTIAL THROMBO TIME 20.7 SECONDS (20.8-31.5); INTERNATIONAL NORM RATIO 0.9 (2.0-3.5)
[2017-11-05 20:01] LABS: ALBUMIN 3.6 gm/dl (3.1-4.5); ALKALINE PHOSPHATASE 159 U/L (45-117); BUN 13 mg/dl (7-24); CHLORIDE 110 mmol/L (98-107); CPK 41 U/L (39-308); CREATININE 1.07 mg/dL (0.70-1.30); POTASSIUM 3.7 mmol/L (3.5-5.1); SGOT/AST 13 IU/L (3-35); SGPT/ALT 17 U/L (12-78); SODIUM 142 mmol/L (136-145); TOTAL PROTEIN 6.6 gm/dL (6.4-8.2)
[2017-11-05 20:06] LABS: TROPONIN I < 0.015 ng/ml (<0.045)
[2017-11-05 21:44] VITALS: BP 172/88
== END 2017-11-05 22:05 | disposition home or self-care (01) ==
LOC: ED 19:25
PROVIDERS: Student in an Organized Health Care Education/Training Program
DX: S80.12XA Contusion of left lower leg, initial encounter (principal); I10 Essential (primary) hypertension; E11.649 Type 2 diabetes mellitus with hypoglycemia without coma; Z98.890 Other specified postprocedural states; Z95.1 Presence of aortocoronary bypass graft; Z96.651 Presence of right artificial knee joint; Z79.899 Other long term (current) drug therapy; Z88.0 Allergy status to penicillin; Z79.82 Long term (current) use of aspirin; V89.2XXA Person injured in unspecified motor-vehicle accident, traffic, initial encounter; Y93.89 Activity, other specified; Y92.89 Other specified places as the place of occurrence of the external cause; Y99.9 Unspecified external cause status

== ENCOUNTER → 2018-01-16 | Outpatient (CLI) | payer MEDICARE ==
[~2018-01-16] MED LIST changes: -AMARYL2 MG PO; +AMARYL4 MG PO
[2018-01-16 11:04] LABS: BASO % 0.6 % (0.0-1.0); EOS # 0.4 10*3/uL (0.0-0.4); EOS % 5.9 % (1.0-4.0); HEMATOCRIT 34.2 % (42.0-52.0); LYMPH # 1.8 10*3/uL (1.3-4.4); LYMPH % 28.2 % (27.0-41.0); MEAN CELL VOLUME 95.8 fl (80.0-94.0); MEAN CORPUSCULAR HGB 30.8 pg (27.0-31.0); MEAN CORPUSCULAR HGB CONC 32.2 g/dl (33.0-37.0); MONO # 0.5 10*3/uL (0.1-1.0); MONO % 7.9 % (3.0-9.0); NEUT # 3.6 10*3/uL (2.3-7.9); NEUT % 57.2 % (47.0-73.0); PLATELET COUNT AUTOMATED 255 10*3/uL (130-400); RED BLOOD COUNT 3.57 10*6/uL (4.50-5.90); RED CELL DISTRI WIDTH 12.7 % (0-14.5); WHITE BLOOD COUNT 6.3 10*3/uL (4.8-10.8)
[2018-01-16 11:29] LABS: BUN 13 mg/dl (7-24); CHLORIDE 112 mmol/L (98-107); CREATININE 1.13 mg/dL (0.70-1.30); POTASSIUM 3.6 mmol/L (3.5-5.1); SGOT/AST 14 IU/L (3-35); SGPT/ALT 18 U/L (12-78); SODIUM 144 mmol/L (136-145)
[2018-01-16 11:31] LABS: ALBUMIN 3.6 gm/dl (3.1-4.5); ALKALINE PHOSPHATASE 98 U/L (45-117)
== END | disposition home or self-care (01) ==
LOC: LAB 10:31
PROVIDERS: Internal Medicine Hematology & Oncology
DX: C61 Malignant neoplasm of prostate (principal); E11.59 Type 2 diabetes mellitus with other circulatory complications; I25.10 Atherosclerotic heart disease of native coronary artery without angina pectoris; Z51.11 Encounter for antineoplastic chemotherapy

== ENCOUNTER → 2018-04-10 | Outpatient (CLI) | payer MEDICARE ==
[2018-04-10 11:21] LABS: BASO % 0.3 % (0.0-1.0); EOS # 0.4 10*3/uL (0.0-0.4); EOS % 4.6 % (1.0-4.0); HEMATOCRIT 36.4 % (42.0-52.0); HEMOGLOBIN 11.3 g/dl (14.0-18.0); LYMPH # 1.5 10*3/uL (1.3-4.4); LYMPH % 16.8 % (27.0-41.0); MEAN CELL VOLUME 94.5 fl (80.0-94.0); MEAN CORPUSCULAR HGB 29.4 pg (27.0-31.0); MEAN PLATELET VOLUME 9.3 fl (9.6-12.3); MONO # 0.6 10*3/uL (0.1-1.0); MONO % 7.1 % (3.0-9.0); NEUT # 6.4 10*3/uL (2.3-7.9); NEUT % 70.9 % (47.0-73.0); PLATELET COUNT AUTOMATED 291 10*3/uL (130-400); RED BLOOD COUNT 3.85 10*6/uL (4.50-5.90); RED CELL DISTRI WIDTH 14.3 % (0-14.5)
[2018-04-10 11:36] LABS: ALBUMIN 3.4 gm/dl (3.1-4.5); BUN 17 mg/dl (7-24); CHLORIDE 110 mmol/L (98-107); POTASSIUM 3.9 mmol/L (3.5-5.1); SODIUM 140 mmol/L (136-145)
[2018-04-10 11:42] LABS: ALKALINE PHOSPHATASE 111 U/L (45-117); CREATININE 1.08 mg/dL (0.70-1.30); SGOT/AST 15 IU/L (3-35); SGPT/ALT 16 U/L (12-78); TOTAL PROTEIN 7.1 gm/dL (6.4-8.2)
== END | disposition home or self-care (01) ==
LOC: LAB 10:37
DX: Z51.11 Encounter for antineoplastic chemotherapy (principal); C61 Malignant neoplasm of prostate; E11.9 Type 2 diabetes mellitus without complications; I25.10 Atherosclerotic heart disease of native coronary artery without angina pectoris

== ENCOUNTER 2018-05-20 06:03 | Inpatient (IN) | payer MEDICARE ==
[2018-05-20] VITALS (8 sets, daily range): BP systolic 147–184; BP diastolic 82–110
[~2018-05-20] VITALS: Ht 170.1 cm
--- NOTE | ~2018-05-20 | PR ---
[place], [place] PROGRESS NOTE NAME: GLENYS GARDINER JR [facility] #: [id number] UNIT #: [id number] ROOM: 403 DOCTOR: MARIAM MEJIA MD BIRTHDATE: [birth year] DOS: 05/24/2018 SUBJECTIVE: The patient is doing well, does not have any new complaints. He has a slight cough, did have a low grade fever during the night. OBJECTIVE: VITAL SIGNS: Blood pressure is 152/90, pulse of 88, respirations 20, temperature 97.9. LUNGS: Diminished breath sounds, but clear. HEART: Regular. ABDOMEN: Obese, soft. EXTREMITIES: Without any edema. LABORATORY DATA: Glucose is 152, BUN is 18, creatinine 0.96, sodium 139, potassium 3.0, chloride 109, bicarbonate 19, calcium 8.4. WBC count is 12.0, hemoglobin 8.7, hematocrit 26.3, platelets 201. White cell count is down to 12,000 this morning. Left hand arthritis, severe osteoarthritis of the first MCP was noted. Uric acid was 3.8. ASSESSMENT AND PLAN: 1. Acute pancreatitis, resolved. 2. Acute cholecystitis, on antibiotics. White cell count has come down to 12,000. 3. 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 The patient is stable. We will be discharging to home today. Follow up as an outpatient. MARIAM MEJIA MD CM:PNTRANS 0820 1046 MARIAM MEJIA MD 05/24/18 1046 interface
--- NOTE | ~2018-05-20 | PR ---
[place], [place] PROGRESS NOTE NAME: GLENYS GARDINER JR [facility] #: [id number] UNIT #: [id number] ROOM: 403 DOCTOR: MARIAM MEJIA MD BIRTHDATE: [birth year] DOS: 05/22/2018 SUBJECTIVE: The patient is resting comfortably, some decreased abdominal pain. Does not have any new complaints. OBJECTIVE: VITAL SIGNS: Blood pressure is 136/72, pulse of 70, respirations 18, temperature 98.2. LUNGS: Clear. HEART: Regular. ABDOMEN: Soft. There is still some tenderness in the right and left upper quadrants. LABORATORY DATA: This morning shows glucose of 146, BUN 17, creatinine 0.90. Sodium 139, potassium 3.6, chloride 108, bicarbonate 21. Protein 6.2, albumin 2.6. SGOT, SGPT was normal. Amylase 230, lipase 208. WBC count is 18.8. ASSESSMENT AND PLAN: 1. Acute pancreatitis, improving. Advance the diet to soft. We will discontinue IV fluids. 2. Acute cholecystitis, on IV Rocephin and Flagyl to the regimen. Consult Dr. Fall awaiting Dr. Ruvalcaba's input. 3. Benign hypertension, controlled. 4. Type 2 diabetes mellitus. Blood sugars being covered. This morning was 135, which hold off on and his oral antidiabetics until his diet becomes normal. MARIAM MEJIA MD CM:PNTRANS 0830 0955 MARIAM MEJIA MD 05/22/18 0957 interface
--- NOTE | ~2018-05-20 | PR ---
[place], [place] PROGRESS NOTE NAME: [facility]ER JR [facility] [id number] UNIT #: [id number] ROOM: 403 DOCTOR: MARIAM MEJIA MD BIRTHDATE: [birth year] DOS: 05/23/2018 SUBJECTIVE: The patient is doing well, does not have any new complaints of abdominal pain, but he has developed left hand pain. He has the hard time lifting and moving and doing any activities with the hand, started during the night. Does not have any fever or chills. OBJECTIVE: VITAL SIGNS: Graphic trend shows a pressure 137/73, pulse of 80, respirations 18, and temperature 97.7. LUNGS: Clear. HEART: Regular. ABDOMEN: Obese. Some minimal tenderness in the right upper quadrant. EXTREMITIES: Without any edema. LABORATORY DATA: White cell count is down to 15.4. Hepatic functions are all within normal limits. Amylase and lipase is also normal. ASSESSMENT AND PLAN: 1. Acute pancreatitis, possibly from underlying gallbladder sludge moving down, this has resolved. 2. Acute cholecystitis, on IV Flagyl and IV Rocephin. White cell count has finally down to 15,000. We will continue the antibiotics. Once the white cell count comes down to below 12,000, I plan to discharge the patient. 3. Acute gout of the left hand. X-ray of the left hand is ordered along with uric acid level. I placed the patient on Toradol IV this morning and colchicine. MARIAM MEJIA MD CM:PNTRANS 0831 0848 MARIAM MEJIA MD 05/23/18 0849 interface
--- NOTE | ~2018-05-20 | DS ---
[place], [place] DISCHARGE SUMMARY NAME: GLENYS GARDINER JR [facility] #: [id number] UNIT #: [id number] ROOM: 403 DOCTOR: MARIAM MEJIA MD BIRTHDATE: [birth year] DOS: 05/24/2018 DIAGNOSES: 1. Acute cholecystitis. 2. Acute pancreatitis, resolved. 3. Benign hypertension. 4. Type 2 diabetes mellitus. 5. Acute tracheobronchitis. 6. Coronary artery disease with history of stent placement in 2018. 7. CA prostate, on Lupron. 8. History of coronary artery disease, status post coronary artery bypass graft. HOSPITAL COURSE: An 83 years old patient with severe abdominal pain. On Tuesday, he had called the office, had acute cough with bronchitis symptoms and a fever. He wanted a Z-SILVANA, which was prescribed. He took 1 pill of that. Tuesday evening, he had severe abdominal pain and then Tuesday he had multiple emesis, so he decided to come into the Emergency Room where he was evaluated and was found to have acute pancreatitis, acute cholecystitis and was admitted, placed on IV antibiotics and IV fluids, n.p.o. and labs showed some improvement in his amylase and lipase and it normalized. Surgical consultation and Dr. Ruvalcaba was consulted. They do not feel that the gallbladder is the source of infection; they feel it is Z-SILVANA causing pancreatitis. The patient is stable and improved. White cell count has slowly come down to 12,000. He does have low-grade fever, but the cough is possibly from underlying bronchitis. Chest x-ray is pending today. He also has hypokalemia, supplementation has been given and will continue prescription as an outpatient. Since he is fairly stable and is eating well and is not having any new complaints, so plans to discharge him to home today to be followed as an outpatient. The patient developed acute gout of the left hand. X-ray showed severe osteoarthritis. Uric acid was normal. The patient after was started on colchicine and Toradol has improvement in his left hand pain and swelling. MEDICATIONS ON DISCHARGE: Colchicine 0.6 mg twice a day, Cipro 500 b.i.d. for 7 days, potassium 10 daily for 10 days, metformin 500 b.i.d., terazosin 5 b.i.d., simvastatin 40 daily, Protonix 40 daily, citalopram 20 daily, aspirin 81 daily, multivitamin one tablet daily, metoprolol 25 b.i.d., vitamin B12 1000 mcg daily, vitamin D 400 units twice a day, glimepiride 4 mg daily, diltiazem 60 b.i.d., meclizine 12.5 t.i.d. p.r.n. [place], [place] DISCHARGE SUMMARY NAME: GLENYS GARDINER JR UNIT #: [id number] ROOM: [facility] DOCTOR: MARIAM MEJIA MD BIRTHDATE: [birth year] MARIAM MEJIA MD CM:IDA [phone] MARIAM MEJIA MD 05/24/18 1552 interface
--- NOTE | ~2018-05-20 | WRIGHTHP ---
[place], [place] PATIENT HISTORY AND PHYSICAL EXAM NAME: GLENYS GARDINER JR [facility] #: [id number] UNIT #: [id number] ROOM: 403 DOCTOR: MARIAM MEJIA MD BIRTHDATE: [birth year] DOS: 05/20/2018 HISTORY OF PRESENT ILLNESS: The patient is 83 years old, very well known to us. The patient states that he had some URI symptoms with cough and productive sputum for the last few days. He called the office on Tuesday and a prescription for Z-SILVANA was given, but Tuesday evening, he noted that he had significant abdominal pain and he had multiple emesis on Tuesday morning. He finally decided to come into the Emergency Room where he was evaluated and was found to have acute pancreatitis. The patient this morning feels much better. Denies having any chest pains, palpitations, or shortness of breath. He still has minimal abdominal discomfort. PAST MEDICAL HISTORY: Significant for; 1. CA prostate, on Lupron. 2. Coronary artery disease with history of stent placement in 03/2018. 3. History of coronary artery disease, status post CABG in 2003. 4. Type 2 diabetes mellitus. 5. Benign hypertension. 6. History of nonsustained ventricular tachycardia. MEDICATIONS: He is currently on are vitamin D 400 units b.i.d., aspirin 81 daily, citalopram 20 daily, diltiazem 60 b.i.d., glimepiride 4 daily, meclizine 12.5 t.i.d. p.r.n., metformin 500 q.i.d., metoprolol 25 b.i.d., multivitamin one tablet daily, Protonix 40 daily, simvastatin 40 daily, terazosin 5 b.i.d. SOCIAL HISTORY: Nonsmoker, does not use any alcohol. Lives at home with his . PHYSICAL EXAMINATION: GENERAL: He is awake and alert and oriented, is resting comfortably in no distress. VITAL SIGNS: Blood pressure is 144/90, pulse of 95, respirations 18, temperature 97.9. LUNGS: Diminished breath sounds, clear. HEART: Regular. ABDOMEN: Obese, some diffuse tenderness present mostly in the right upper quadrant. EXTREMITIES: Without any edema. LABORATORY DATA: WBC count is 17.7. Lactic acid 3.1. Urine, 1+ ketones. Comprehensive glucose 282, BUN 16, creatinine 1.27. Electrolytes normal. SGOT 55, SGPT 40. Amylase 1923. Lipase 26,646. CT of the abdomen and pelvis shows pancreatitis of the head of the pancreas, fatty infiltration of the liver. Gallbladder screening shows gallbladder wall edema with cholecystitis. ASSESSMENT AND PLAN: 1. The patient with acute pancreatitis. Keep patient n.p.o., IV fluids have been ordered. Follow amylase and lipase closely. Consult Dr. Ruvalcaba. 2. Acute cholecystitis, most likely had sludge, which caused the acute pancreatitis. A surgical consultation will be obtained with Dr. Fall. [place], [place] PATIENT HISTORY AND PHYSICAL EXAM NAME: GLENYS GARDINER JR UNIT #: [id number] ROOM: [facility] DOCTOR: MARIAM MEJIA MD BIRTHDATE: [birth year] 3. Benign hypertension, controlled. 4. Type 2 diabetes mellitus. Since he is n.p.o., continue blood sugars q.i.d. with coverage. Hold off on his home medications. 5. Coronary artery disease, history of recent stent placement. No evidence of congestive heart failure. Slow IV hydration to be continued. Since the lipase has come down from 26,000-3000 range this morning, place the patient on a clear liquid diet. MARIAM MEJIA MD CM:HISPHYS:PATIENT HISTORY AND PHYSICAL EXAMINATION [id number] MARIAM MEJIA MD 05/21/18 1212 interface
[2018-05-20 07:05] LABS: BASO % 0.2 % (0.0-1.0); EOS # 0.1 10*3/uL (0.0-0.4); EOS % 0.3 % (1.0-4.0); HEMATOCRIT 39.6 % (42.0-52.0); HEMOGLOBIN 12.8 g/dl (14.0-18.0); LYMPH # 1.3 10*3/uL (1.3-4.4); LYMPH % 7.4 % (27.0-41.0); MEAN CELL VOLUME 92.3 fl (80.0-94.0); MEAN CORPUSCULAR HGB 29.8 pg (27.0-31.0); MEAN CORPUSCULAR HGB CONC 32.3 g/dl (33.0-37.0); MEAN PLATELET VOLUME 8.9 fl (9.6-12.3); MONO # 0.7 10*3/uL (0.1-1.0); MONO % 3.7 % (3.0-9.0); NEUT # 15.6 10*3/uL (2.3-7.9); NEUT % 87.9 % (47.0-73.0); PLATELET COUNT AUTOMATED 333 10*3/uL (130-400); RED BLOOD COUNT 4.29 10*6/uL (4.50-5.90); RED CELL DISTRI WIDTH 14.1 % (0-14.5); WHITE BLOOD COUNT 17.7 10*3/uL (4.8-10.8)
[2018-05-20 07:08] LABS: BILIRUBIN NEGATIVE (NEGATIVE); BLOOD NEGATIVE (NEGATIVE); CLARITY CLEAR (CLEAR); COLOR YELLOW (YELLOW); GLUCOSE 3+ (NEGATIVE); KETONE 1+ (NEGATIVE); LEUKO ESTERASE NEGATIVE (NEGATIVE); NITRITE NEGATIVE (NEGATIVE); UROBILINOGEN 0.2 E.U./dl (0.2-1.0)
[2018-05-20 07:20] LABS: ALBUMIN 4.1 gm/dl (3.1-4.5); ALKALINE PHOSPHATASE 117 U/L (45-117); BUN 16 mg/dl (7-24); CHLORIDE 107 mmol/L (98-107); CREATININE 1.27 mg/dL (0.70-1.30); POTASSIUM 3.7 mmol/L (3.5-5.1); SGOT/AST 55 IU/L (3-35); SGPT/ALT 40 U/L (12-78); SODIUM 140 mmol/L (136-145)
--- NOTE | 2018-05-20 07:22 | NUR ---
DR MORTENSEN AWARE OF CRITICAL LACTIC ACID OF 3.1
[2018-05-20 07:24] LABS: LIPASE 26646 U/L (73-393)
--- NOTE | 2018-05-20 07:33 | NUR ---
PT STATES DILAUDID EFFECTIVE FOR PAIN.
--- NOTE | 2018-05-20 10:52 | NUR ---
MSADMTime: N A 83 year old MALE admitted to 4E under services of DR. ROBERTO FERGUSON,MARIAM. Pt. arrived via bed from ER. Chief complaint: ABDM PAIN. KAM RANGEL
--- NOTE | 2018-05-20 11:41 | NUR ---
DILAUDID GIVEN FOR C/O ABDM. PAIN. WILL MONITOR.
--- NOTE | 2018-05-20 12:45 | NUR ---
DILAUDID EFFECTIVE PER PT.
--- NOTE | 2018-05-20 13:49 | NUR ---
DR. DE JESUS NOTIFIED OF CONSULT. NEW ORDERS RECIEVED.
--- NOTE | 2018-05-20 20:35 | NUR ---
PATIENT REQUESTING LOPRESSOR BE GIVEN EARLY SO PATIENT CAN GO TO SLEEP. MEDICATION GIVEN AT THIS TIME WITH A SIP OF WATER. BED ALARM WITHIN REACH. WILL CONTINUE TO MONTIOR.
[2018-05-21] VITALS: BP 144/90
[2018-05-21 06:00] LABS: BASO % 0.1 % (0.0-1.0); EOS # 0.1 10*3/uL (0.0-0.4); EOS % 0.3 % (1.0-4.0); HEMOGLOBIN 11.4 g/dl (14.0-18.0); LYMPH # 1.5 10*3/uL (1.3-4.4); LYMPH % 7.9 % (27.0-41.0); MEAN CELL VOLUME 93.8 fl (80.0-94.0); MEAN CORPUSCULAR HGB 29.7 pg (27.0-31.0); MEAN CORPUSCULAR HGB CONC 31.7 g/dl (33.0-37.0); MEAN PLATELET VOLUME 9.3 fl (9.6-12.3); MONO # 1.4 10*3/uL (0.1-1.0); MONO % 7.3 % (3.0-9.0); NEUT # 15.9 10*3/uL (2.3-7.9); NEUT % 83.9 % (47.0-73.0); PLATELET COUNT AUTOMATED 280 10*3/uL (130-400); RED BLOOD COUNT 3.84 10*6/uL (4.50-5.90); RED CELL DISTRI WIDTH 14.4 % (0-14.5); WHITE BLOOD COUNT 18.9 10*3/uL (4.8-10.8)
[2018-05-21 06:21] LABS: ALBUMIN 3.1 gm/dl (3.1-4.5); BILIRUBIN, DIRECT 0.2 mg/dL (0.0-0.2); BUN 15 mg/dl (7-24); CHLORIDE 108 mmol/L (98-107); CREATININE 0.91 mg/dL (0.70-1.30); POTASSIUM 3.4 mmol/L (3.5-5.1); SGOT/AST 56 IU/L (3-35); SGPT/ALT 51 U/L (12-78); SODIUM 141 mmol/L (136-145); TOTAL PROTEIN 6.4 gm/dL (6.4-8.2)
[2018-05-21 06:23] LABS: ALKALINE PHOSPHATASE 88 U/L (45-117)
[2018-05-21 06:25] LABS: LIPASE 3330 U/L (73-393)
[2018-05-21 12:00] VITALS: BP 168/78
[2018-05-21 16:00] VITALS: BP 150/76
--- NOTE | 2018-05-21 19:45 | NUR ---
PATIENT PULSE OX 89-90% ON RA. ORINGALLY PLACE ON 2L. PATIENT ONLY STATING 90-91% PATIENT PLACED ON 2.5L NC. PATIENT NOW STATING 94-95% ON 2.5L. PATIENT ENCOURAGED TO DEEP BREATHE. WILL CONTINUE TO MONITOR.
[2018-05-21 20:00] VITALS: BP 148/72
[2018-05-22] VITALS: BP 136/72
[2018-05-22 06:31] LABS: BASO % 0.2 % (0.0-1.0); EOS # 0.3 10*3/uL (0.0-0.4); EOS % 1.5 % (1.0-4.0); LYMPH % 10.8 % (27.0-41.0); MEAN CELL VOLUME 93.6 fl (80.0-94.0); MEAN CORPUSCULAR HGB 29.2 pg (27.0-31.0); MEAN CORPUSCULAR HGB CONC 31.3 g/dl (33.0-37.0); MEAN PLATELET VOLUME 9.3 fl (9.6-12.3); MONO # 1.4 10*3/uL (0.1-1.0); MONO % 7.6 % (3.0-9.0); NEUT # 14.9 10*3/uL (2.3-7.9); NEUT % 79.4 % (47.0-73.0); PLATELET COUNT AUTOMATED 205 10*3/uL (130-400); RED BLOOD COUNT 3.42 10*6/uL (4.50-5.90); WHITE BLOOD COUNT 18.8 10*3/uL (4.8-10.8)
[2018-05-22 06:52] LABS: ALBUMIN 2.6 gm/dl (3.1-4.5); ALKALINE PHOSPHATASE 77 U/L (45-117); BILIRUBIN, DIRECT 0.2 mg/dL (0.0-0.2); BUN 17 mg/dl (7-24); CHLORIDE 108 mmol/L (98-107); LIPASE 208 U/L (73-393); POTASSIUM 3.6 mmol/L (3.5-5.1); SGOT/AST 20 IU/L (3-35); SGPT/ALT 29 U/L (12-78); SODIUM 139 mmol/L (136-145); TOTAL PROTEIN 6.2 gm/dL (6.4-8.2)
[2018-05-22 08:00] VITALS: BP 120/70
--- NOTE | 2018-05-22 09:00 | NUR ---
PHYSICIAN WAS NOTIFIED OF DR. RODGERS CONSULT. RESPONSE OF NOTIFICATION WAS OK I WILL BE UP TO SEE HIM . AYSHA TONG
--- NOTE | 2018-05-22 09:00 | NUR ---
Bilingual Hr Generalist in to talk to patient. Patient states lives at home with his and daughter. There are 15 steps in the home. Physician: Dr. Rach Santoyo [facility] health services: none Patient's level of ADLs: INDEPENDENT Patient has working utilities: yes DME: none Follow-up physician's appointment after d/c: he prefers to make his own follow up appt after discharge Does patient want to access PORTAL?: no Discharge plan discussed with patient. He lives at home with his and daughter. He is independent in his ADLs and ambulation. Discussed home health care services and he denies any home needs at this time. When medically stable he will be discharged to home. His son or daughter will transport on discharge. SUE MAYES
[2018-05-22 12:00] VITALS: BP 150/69
[2018-05-22 16:00] VITALS: BP 140/63
[2018-05-22 20:00] VITALS: BP 148/72
--- NOTE | 2018-05-22 20:08 | NUR ---
1944 RESTING IN BED WATCHING TV. SOFT DIET TAKEN FAIR. HEP LOCK INTACT [place]. NO DISTRESS NOTED. NO C/O'S N/V NOTED. C/O PERFUSE ABD TENDERNESS ON PALPATION. WILL MONITOR.
--- NOTE | 2018-05-22 23:38 | NUR ---
2100 C/O SEVERE PAIN IN LEFT WRIST. STATES " I SLEPT ON IT WRONG." 2299 BENGAY APPLIED TO LEFT WRIST PER PT REQUEST. 2314 BENGAY NOT EFFECTIVE. DILUADID 0.5MG GIVEN IV FOR CONT C/O'S SEVERE PAIN IN LEFT WRIST. ALSO C/O ABD PAIN. 2339 EARLIER PAIN MED EFFECTIVE. RESTING IN BED WATCHING TV. BED ALARM APPLIED.
[2018-05-23] VITALS: BP 137/73
--- NOTE | 2018-05-23 04:10 | NUR ---
RESTING IN BED WITH EYES CLOSED. APPEARS TO BE SLEEPING.
--- NOTE | 2018-05-23 06:05 | NUR ---
CONT TO C/O LEFT WRIST PAIN, EVEN WITH THE SLIGHTEST TOUCH. WILL CONT TO MONITOR. HEP LOC INTACT [place]. CONDITION GUARDED.
[2018-05-23 06:24] LABS: BASO % 0.1 % (0.0-1.0); EOS # 0.4 10*3/uL (0.0-0.4); EOS % 2.6 % (1.0-4.0); HEMATOCRIT 29.2 % (42.0-52.0); HEMOGLOBIN 9.5 g/dl (14.0-18.0); LYMPH # 2.1 10*3/uL (1.3-4.4); LYMPH % 13.6 % (27.0-41.0); MEAN CELL VOLUME 92.4 fl (80.0-94.0); MEAN CORPUSCULAR HGB 30.1 pg (27.0-31.0); MEAN CORPUSCULAR HGB CONC 32.5 g/dl (33.0-37.0); MEAN PLATELET VOLUME 9.8 fl (9.6-12.3); MONO # 1.3 10*3/uL (0.1-1.0); MONO % 8.1 % (3.0-9.0); NEUT # 11.5 10*3/uL (2.3-7.9); NEUT % 75.1 % (47.0-73.0); PLATELET COUNT AUTOMATED 207 10*3/uL (130-400); RED BLOOD COUNT 3.16 10*6/uL (4.50-5.90); WHITE BLOOD COUNT 15.4 10*3/uL (4.8-10.8)
[2018-05-23 06:34] LABS: ALBUMIN 2.6 gm/dl (3.1-4.5); BILIRUBIN, DIRECT 0.2 mg/dL (0.0-0.2); TOTAL PROTEIN 6.1 gm/dL (6.4-8.2)
[2018-05-23 08:00] VITALS: BP 156/76; BP 164/88
--- NOTE | 2018-05-23 08:00 | NUR ---
Match Marker in to see patient. No new needs or request at this time. He denies any home needs. His daughter or son will transport on discharge. When medically stable he will be discharged to home.
--- NOTE | 2018-05-23 08:30 | NUR ---
IN BED. C/O LEFT WRIST PAIN. DR MEJIA IN TO SEE PATIENT AND IS PUTTING IN ORDERS.
--- NOTE | 2018-05-23 10:07 | NUR ---
DR MEJIA WANTED LEFT HAND X-RAY AND NOT RIGHT. ORDER CHANGED.
[2018-05-23 12:00] VITALS: BP 150/77
[2018-05-23 16:00] VITALS: BP 156/85
[2018-05-23 20:00] VITALS: BP 152/75
[2018-05-24] VITALS: BP 140/68
[2018-05-24 06:22] LABS: BASO % 0.3 % (0.0-1.0); EOS # 0.3 10*3/uL (0.0-0.4); EOS % 2.7 % (1.0-4.0); HEMATOCRIT 26.3 % (42.0-52.0); HEMOGLOBIN 8.7 g/dl (14.0-18.0); LYMPH # 1.2 10*3/uL (1.3-4.4); LYMPH % 10.1 % (27.0-41.0); MEAN CORPUSCULAR HGB 30.1 pg (27.0-31.0); MEAN CORPUSCULAR HGB CONC 33.1 g/dl (33.0-37.0); MEAN PLATELET VOLUME 9.8 fl (9.6-12.3); MONO # 1.1 10*3/uL (0.1-1.0); MONO % 8.8 % (3.0-9.0); NEUT # 9.3 10*3/uL (2.3-7.9); NEUT % 77.7 % (47.0-73.0); PLATELET COUNT AUTOMATED 201 10*3/uL (130-400); RED BLOOD COUNT 2.89 10*6/uL (4.50-5.90); RED CELL DISTRI WIDTH 13.8 % (0-14.5)
[2018-05-24 06:40] LABS: BUN 18 mg/dl (7-24); CHLORIDE 109 mmol/L (98-107); CREATININE 0.96 mg/dL (0.70-1.30); SODIUM 139 mmol/L (136-145)
[2018-05-24 08:00] VITALS: BP 162/90
[2018-05-24] MEDS ORDERED: COLCHICINE0.6 M1 PO (08:23)
[2018-05-24] MEDS ORDERED: CIPRO500 MG PO (08:23)
[2018-05-24] MEDS ORDERED: K-TAB10 MEQ PO (08:24)
--- NOTE | 2018-05-24 10:45 | NUR ---
Discharge instructions reviewed with patient/family. Patient receptive and verbalizes understanding. Follow-up care arranged. Written instructions given to patient/family. HEPLOCK DISCONTINUED. DRIVER STARTING GATE REMOVED. AZUCENA DO
== END 2018-05-24 10:45 | disposition home or self-care (01) | DRG 871 ==
LOC: ED 06:03 → EDHOLD 09:47 → 4E 09:47
PROVIDERS: Emergency Medicine; Student in an Organized Health Care Education/Training Program; ADMIT Internal Medicine
DX: A41.9 Sepsis, unspecified organism (principal); K85.90 Acute pancreatitis without necrosis or infection, unspecified; K81.0 Acute cholecystitis; I10 Essential (primary) hypertension; I25.10 Atherosclerotic heart disease of native coronary artery without angina pectoris; E11.65 Type 2 diabetes mellitus with hyperglycemia; C61 Malignant neoplasm of prostate; M19.049 Primary osteoarthritis, unspecified hand; M10.9 Gout, unspecified; J20.9 Acute bronchitis, unspecified; Z96.651 Presence of right artificial knee joint; E87.6 Hypokalemia; Z95.1 Presence of aortocoronary bypass graft; Z88.0 Allergy status to penicillin; Z82.49 Family history of ischemic heart disease and other diseases of the circulatory system; Z82.3 Family history of stroke; Z79.899 Other long term (current) drug therapy; Z79.84 Long term (current) use of oral hypoglycemic drugs; Z79.82 Long term (current) use of aspirin; Z79.52 Long term (current) use of systemic steroids

== ENCOUNTER → 2018-06-08 | Outpatient (CLI) | payer MEDICARE ==
[~2018-06-08] MED LIST changes: +COLCHICINE0.6 M1 PO; +K-TAB10 MEQ PO
== END | disposition home or self-care (01) ==
LOC: CT 06-02 15:00
DX: R10.84 Generalized abdominal pain (principal); R11.0 Nausea; M47.819 Spondylosis without myelopathy or radiculopathy, site unspecified

== ENCOUNTER → 2018-06-14 | Outpatient (CLI) | payer MEDICARE ==
[2018-06-14 10:39] LABS: BASO % 0.3 % (0.0-1.0); EOS # 0.5 10*3/uL (0.0-0.4); EOS % 4.6 % (1.0-4.0); HEMATOCRIT 35.6 % (42.0-52.0); HEMOGLOBIN 11.5 g/dl (14.0-18.0); LYMPH # 1.7 10*3/uL (1.3-4.4); MEAN CELL VOLUME 93.2 fl (80.0-94.0); MEAN CORPUSCULAR HGB 30.1 pg (27.0-31.0); MEAN CORPUSCULAR HGB CONC 32.3 g/dl (33.0-37.0); MEAN PLATELET VOLUME 8.8 fl (9.6-12.3); MONO # 0.6 10*3/uL (0.1-1.0); MONO % 5.5 % (3.0-9.0); NEUT # 7.8 10*3/uL (2.3-7.9); NEUT % 73.3 % (47.0-73.0); PLATELET COUNT AUTOMATED 311 10*3/uL (130-400); RED BLOOD COUNT 3.82 10*6/uL (4.50-5.90); WHITE BLOOD COUNT 10.7 10*3/uL (4.8-10.8)
[2018-06-14 11:18] LABS: ALBUMIN 3.6 gm/dl (3.1-4.5); ALKALINE PHOSPHATASE 103 U/L (45-117); BUN 13 mg/dl (7-24); CHLORIDE 107 mmol/L (98-107); CREATININE 1.19 mg/dL (0.70-1.30); POTASSIUM 3.8 mmol/L (3.5-5.1); SGOT/AST 11 IU/L (3-35); SGPT/ALT 15 U/L (12-78); SODIUM 139 mmol/L (136-145); TOTAL PROTEIN 7.7 gm/dL (6.4-8.2)
== END | disposition home or self-care (01) ==
LOC: LAB 10:19
PROVIDERS: Internal Medicine Hematology & Oncology
DX: Z51.11 Encounter for antineoplastic chemotherapy (principal); C61 Malignant neoplasm of prostate; E11.59 Type 2 diabetes mellitus with other circulatory complications; I25.10 Atherosclerotic heart disease of native coronary artery without angina pectoris

== ENCOUNTER → 2018-09-13 | Outpatient (CLI) | payer MEDICARE ==
[2018-09-13 11:16] LABS: BASO % 0.2 % (0.0-1.0); EOS # 0.3 10*3/uL (0.0-0.4); EOS % 3.3 % (1.0-4.0); HEMOGLOBIN 11.5 g/dl (14.0-18.0); LYMPH # 1.6 10*3/uL (1.3-4.4); LYMPH % 18.4 % (27.0-41.0); MEAN CELL VOLUME 93.7 fl (80.0-94.0); MEAN CORPUSCULAR HGB 29.1 pg (27.0-31.0); MEAN CORPUSCULAR HGB CONC 31.1 g/dl (33.0-37.0); MEAN PLATELET VOLUME 9.1 fl (9.6-12.3); MONO # 0.6 10*3/uL (0.1-1.0); MONO % 6.2 % (3.0-9.0); NEUT # 6.4 10*3/uL (2.3-7.9); NEUT % 71.6 % (47.0-73.0); PLATELET COUNT AUTOMATED 272 10*3/uL (130-400); RED BLOOD COUNT 3.95 10*6/uL (4.50-5.90); RED CELL DISTRI WIDTH 14.1 % (0-14.5); WHITE BLOOD COUNT 8.9 10*3/uL (4.8-10.8)
[2018-09-13 11:46] LABS: ALBUMIN 3.8 gm/dl (3.1-4.5); BUN 14 mg/dl (7-24); CHLORIDE 107 mmol/L (98-107); CREATININE 1.27 mg/dL (0.70-1.30); POTASSIUM 4.3 mmol/L (3.5-5.1); SGOT/AST 21 IU/L (3-35); SGPT/ALT 32 U/L (12-78); SODIUM 139 mmol/L (136-145)
[2018-09-13 11:47] LABS: ALKALINE PHOSPHATASE 116 U/L (45-117); TOTAL PROTEIN 7.2 gm/dL (6.4-8.2)
== END | disposition home or self-care (01) ==
LOC: LAB 10:48
DX: Z51.11 Encounter for antineoplastic chemotherapy (principal); I25.10 Atherosclerotic heart disease of native coronary artery without angina pectoris; E11.59 Type 2 diabetes mellitus with other circulatory complications; C61 Malignant neoplasm of prostate

== ENCOUNTER 2018-11-24 17:51 | Emergency (ER) | payer MEDICARE ==
[~2018-11-24] VITALS: Ht 170.1 cm; Wt 74.8 kg
[2018-11-24 17:52] VITALS: BP 160/89
[2018-11-24 18:35] LABS: BASO % 0.3 % (0.0-1.0); EOS # 0.3 10*3/uL (0.0-0.4); HEMATOCRIT 35.3 % (42.0-52.0); HEMOGLOBIN 11.4 g/dl (14.0-18.0); LYMPH % 28.8 % (27.0-41.0); MEAN CELL VOLUME 93.4 fl (80.0-94.0); MEAN CORPUSCULAR HGB 30.2 pg (27.0-31.0); MEAN CORPUSCULAR HGB CONC 32.3 g/dl (33.0-37.0); MEAN PLATELET VOLUME 9.3 fl (9.6-12.3); MONO # 0.8 10*3/uL (0.1-1.0); MONO % 7.9 % (3.0-9.0); NEUT # 6.2 10*3/uL (2.3-7.9); NEUT % 59.7 % (47.0-73.0); PLATELET COUNT AUTOMATED 288 10*3/uL (130-400); RED BLOOD COUNT 3.78 10*6/uL (4.50-5.90); RED CELL DISTRI WIDTH 14.3 % (0-14.5); WHITE BLOOD COUNT 10.3 10*3/uL (4.8-10.8)
[2018-11-24 18:45] LABS: ACT PARTIAL THROMBO TIME 21.6 SECONDS (20.0-32.1); INTERNATIONAL NORM RATIO 0.9 (2.0-3.5)
[2018-11-24 18:54] LABS: ALBUMIN 3.8 gm/dl (3.1-4.5); ALKALINE PHOSPHATASE 141 U/L (45-117); BUN 21 mg/dl (7-24); CHLORIDE 107 mmol/L (98-107); CREATININE 1.35 mg/dL (0.70-1.30); SGOT/AST 41 IU/L (3-35); SGPT/ALT 42 U/L (12-78); SODIUM 136 mmol/L (136-145); TOTAL PROTEIN 7.5 gm/dL (6.4-8.2)
[2018-11-24 19:01] LABS: TROPONIN I < 0.015 ng/ml (<0.045)
[2018-11-24 19:10] LABS: BILIRUBIN NEGATIVE (NEGATIVE); BLOOD NEGATIVE (NEGATIVE); CLARITY CLEAR (CLEAR); COLOR YELLOW (YELLOW); GLUCOSE 1+ (NEGATIVE); KETONE TRACE (NEGATIVE); LEUKO ESTERASE NEGATIVE (NEGATIVE); NITRITE NEGATIVE (NEGATIVE); PH 5.5 (5.0-9.0); SPECIFIC GRAVITY >= 1.030 (1.005-1.030); UROBILINOGEN 0.2 E.U./dl (0.2-1.0)
[2018-11-24 19:21] LABS: EPITHELIAL CELLS 16-20; MUCOUS 2+
[2018-11-24 19:22] LABS: BACTERIA TRACE
== END 2018-11-24 20:00 | disposition home or self-care (01) ==
LOC: ED 17:51
PROVIDERS: Emergency Medicine
DX: E11.65 Type 2 diabetes mellitus with hyperglycemia (principal); I10 Essential (primary) hypertension; Z95.1 Presence of aortocoronary bypass graft; Z88.0 Allergy status to penicillin; Z79.2 Long term (current) use of antibiotics; Z79.899 Other long term (current) drug therapy; Z79.82 Long term (current) use of aspirin

== ENCOUNTER → 2018-12-14 | Outpatient (CLI) | payer MEDICARE ==
[2018-12-14 12:01] LABS: ALBUMIN 3.8 gm/dl (3.1-4.5); ALKALINE PHOSPHATASE 112 U/L (45-117); BUN 20 mg/dl (7-24); CHLORIDE 107 mmol/L (98-107); CREATININE 1.39 mg/dL (0.70-1.30); POTASSIUM 4.1 mmol/L (3.5-5.1); SGOT/AST 22 IU/L (3-35); SGPT/ALT 30 U/L (12-78); SODIUM 139 mmol/L (136-145); TOTAL PROTEIN 7.2 gm/dL (6.4-8.2)
[2018-12-14 12:27] LABS: BASO % 0.4 % (0.0-1.0); EOS # 0.4 10*3/uL (0.0-0.4); EOS % 4.3 % (1.0-4.0); HEMATOCRIT 36.5 % (42.0-52.0); HEMOGLOBIN 11.2 g/dl (14.0-18.0); LYMPH # 1.8 10*3/uL (1.3-4.4); LYMPH % 22.1 % (27.0-41.0); MEAN CELL VOLUME 95.3 fl (80.0-94.0); MEAN CORPUSCULAR HGB 29.2 pg (27.0-31.0); MEAN CORPUSCULAR HGB CONC 30.7 g/dl (33.0-37.0); MEAN PLATELET VOLUME 9.6 fl (9.6-12.3); MONO # 0.7 10*3/uL (0.1-1.0); MONO % 8.2 % (3.0-9.0); NEUT # 5.2 10*3/uL (2.3-7.9); NEUT % 64.8 % (47.0-73.0); PLATELET COUNT AUTOMATED 283 10*3/uL (130-400); RED BLOOD COUNT 3.83 10*6/uL (4.50-5.90); RED CELL DISTRI WIDTH 14.4 % (0-14.5); WHITE BLOOD COUNT 8.1 10*3/uL (4.8-10.8)
[2018-12-15 07:06] LABS: LUTEINIZING HORMONE 004283 0.1 mIU/mL (1.7-8.6)
[2018-12-17 10:53] LABS: FOLLICLE STIMULATING HORMONE 8.1
== END | disposition home or self-care (01) ==
LOC: LAB 10:35
PROVIDERS: Internal Medicine Hematology & Oncology
DX: Z51.11 Encounter for antineoplastic chemotherapy (principal); I25.10 Atherosclerotic heart disease of native coronary artery without angina pectoris; E11.59 Type 2 diabetes mellitus with other circulatory complications; C61 Malignant neoplasm of prostate

== ENCOUNTER 2019-04-02 11:58 | Inpatient (IN) | payer MEDICARE ==
[~2019-04-02] VITALS: Ht 170.1 cm; Wt 79.4 kg
[~2019-04-02 11:58] MED LIST changes: +METFORMIN HYDR500 MG PO; -METFORMIN500 MG PO
[2019-04-02 11:59] VITALS: BP 145/86
--- NOTE | 2019-04-02 12:23 | NUR ---
PT GIVEN URINAL AND IS AWARE WE NEED URINE SAMPLE CALL LIGHT IN REACH
--- NOTE | 2019-04-02 12:42 | NUR ---
WARM BLANKETS PROVIDED PT RESTING IN BED NO DISTRESS NOTED CALL LIGHT IN REACH
[2019-04-02 12:49] LABS: BASO % 0.3 % (0.0-1.0); EOS # 0.4 10*3/uL (0.0-0.4); EOS % 4.3 % (1.0-4.0); HEMATOCRIT 37.3 % (42.0-52.0); LYMPH # 1.9 10*3/uL (1.3-4.4); LYMPH % 19.2 % (27.0-41.0); MEAN CORPUSCULAR HGB 29.3 pg (27.0-31.0); MEAN CORPUSCULAR HGB CONC 32.2 g/dl (33.0-37.0); MONO # 0.6 10*3/uL (0.1-1.0); MONO % 6.5 % (3.0-9.0); NEUT # 6.8 10*3/uL (2.3-7.9); NEUT % 69.4 % (47.0-73.0); PLATELET COUNT AUTOMATED 281 10*3/uL (130-400); RED CELL DISTRI WIDTH 14.2 % (0-14.5); WHITE BLOOD COUNT 9.8 10*3/uL (4.8-10.8)
[2019-04-02 12:59] LABS: ACT PARTIAL THROMBO TIME 23.9 SECONDS (20.0-32.1)
[2019-04-02 13:07] LABS: ALBUMIN 3.4 gm/dl (3.1-4.5); ALKALINE PHOSPHATASE 125 U/L (45-117); BUN 16 mg/dl (7-24); CHLORIDE 110 mmol/L (98-107); CREATININE 1.43 mg/dL (0.70-1.30); LIPASE 68 U/L (73-393); POTASSIUM 4.6 mmol/L (3.5-5.1); SGOT/AST 22 IU/L (3-35); SGPT/ALT 25 U/L (12-78); SODIUM 137 mmol/L (136-145); TOTAL PROTEIN 7.1 gm/dL (6.4-8.2); TROPONIN I 0.016 ng/ml (<0.045)
--- NOTE | 2019-04-02 13:14 | NUR ---
[place] 2.9 DR HERNANDEZ NOTIFIED
--- NOTE | 2019-04-02 13:20 | NUR ---
PT WANTS SOMETHING TO EAT DR HERNANDEZ AWARE OK TO ORDER TRAY
--- NOTE | 2019-04-02 13:28 | NUR ---
DIET ORDER PUT IN AND ROOM SERVICE WAS NOTIFIED
--- NOTE | 2019-04-02 13:47 | NUR ---
pt sitting in bed wathcing tv voices no complaints at this time he is aware we need urine sample and not able to provide one at this time will monitor. call light in reach
[2019-04-02 13:54] VITALS: BP 143/82
[2019-04-02 14:25] LABS: BILIRUBIN NEGATIVE (NEGATIVE); BLOOD NEGATIVE (NEGATIVE); CLARITY CLEAR (CLEAR); COLOR YELLOW (YELLOW); GLUCOSE NEGATIVE (NEGATIVE); KETONE NEGATIVE (NEGATIVE); LEUKO ESTERASE NEGATIVE (NEGATIVE); NITRITE NEGATIVE (NEGATIVE); SPECIFIC GRAVITY <= 1.005 (1.005-1.030); UROBILINOGEN 0.2 E.U./dl (0.2-1.0)
[2019-04-02 14:31] LABS: WBC 0-2 wbc/hpf (0-5)
[2019-04-02] MEDS ORDERED: VITAMIN B122500 MCG PO (14:53)
[2019-04-02] MEDS ORDERED: VITAMIN C1000 M5 PO (14:54)
[2019-04-02] MEDS ORDERED: STARLIX60 M1 PO (14:55)
--- NOTE | 2019-04-02 15:00 | NUR ---
MSTime: 1500 A 84 year old MALE admitted to 5E under services of DR. ROBERTO FERGUSON,MARIAM. Pt. arrived via ambulance from ER. Chief complaint: DIARRHEA AND NAUSEA. ABBEY GRIMES.
[2019-04-02 15:22] VITALS: BP 138/72
--- NOTE | 2019-04-02 15:30 | NUR ---
NOTIFIED REGARDING CRITICAL LACTIC ACID.
[2019-04-02 16:00] VITALS: BP 138/72
--- NOTE | 2019-04-02 17:10 | NUR ---
IVF INITIATED AT THIS TIME PER ORDER.
--- NOTE | 2019-04-02 17:15 | NUR ---
DINNER TRAY SET UP AT BEDSIDE.
[2019-04-02 20:00] VITALS: BP 137/77
[2019-04-03] VITALS: BP 131/83
--- NOTE | 2019-04-03 02:33 | NUR ---
RESTING IN BED WITH EYES CLOSED. RESPIRATIONS REGULAR AND NON-LABORED. IV FLUIDS INFUSING AT 100CC/HR. DENIES COMPLAINTS OF PAIN OR DISCOMFORT AT THIS TIME. WILL CONTINUE TO MONITOR. CALL LIGHT IN REACH.
[2019-04-03 06:31] LABS: BUN 14 mg/dl (7-24); CHLORIDE 112 mmol/L (98-107); SODIUM 140 mmol/L (136-145)
[2019-04-03 06:34] LABS: BASO % 0.2 % (0.0-1.0); EOS # 0.4 10*3/uL (0.0-0.4); EOS % 3.2 % (1.0-4.0); HEMATOCRIT 36.4 % (42.0-52.0); HEMOGLOBIN 11.7 g/dl (14.0-18.0); LYMPH # 2.2 10*3/uL (1.3-4.4); LYMPH % 19.8 % (27.0-41.0); MEAN CELL VOLUME 92.9 fl (80.0-94.0); MEAN CORPUSCULAR HGB 29.8 pg (27.0-31.0); MEAN CORPUSCULAR HGB CONC 32.1 g/dl (33.0-37.0); MEAN PLATELET VOLUME 9.3 fl (9.6-12.3); MONO # 0.7 10*3/uL (0.1-1.0); MONO % 6.6 % (3.0-9.0); NEUT # 7.6 10*3/uL (2.3-7.9); NEUT % 69.9 % (47.0-73.0); PLATELET COUNT AUTOMATED 281 10*3/uL (130-400); RED BLOOD COUNT 3.92 10*6/uL (4.50-5.90); RED CELL DISTRI WIDTH 14.3 % (0-14.5); WHITE BLOOD COUNT 10.9 10*3/uL (4.8-10.8)
--- NOTE | 2019-04-03 07:52 | NUR ---
24 HR chart check completed.
[2019-04-03 08:00] VITALS: BP 136/80
--- NOTE | 2019-04-03 09:00 | NUR ---
Continuous Washer Operator in to talk to patient. Patient states lives at home with his and daughter. There are 15 steps in the home. Physician: Dr. Rach Santoyo [facility] services: none Patient's level of ADLs: INDEPENDENT Patient has working utilities: yes DME: none Follow-up physician's appointment after d/c: he prefers to make his own follow up appt after discharge Does patient want to access PORTAL?: no Discharge plan discussed with patient and son who is at the beside. He lives at home with his and daughter. There is a chair lift for the steps as his has MS. He is independent in his ADLs and ambulation. Discussed home health care services and he denies any home needs at this time. His son will provide transportation on discharge. He is receiving IVFs and BC are pending. SUE MAYES
--- NOTE | 2019-04-03 09:23 | NUR ---
Took verbal phone order from Dr. Santoyo for RN assigned to patient. See new orders.
--- NOTE | 2019-04-03 09:28 | NUR ---
Took order from Dr. Santoyo for RN assigned to patient. See new orders
[2019-04-03 12:00] VITALS: BP 130/78
--- NOTE | 2019-04-03 12:00 | NUR ---
Patient resting quietly with no c/o discomfort. Respirations easy and regular. Vital signs stable. No overt distress. ISABELLA WARE
[2019-04-03 16:00] VITALS: BP 161/69; BP 180/84
[2019-04-03] MEDS ORDERED: TEMAZEPAM15 M1 PO (17:02)
--- NOTE | 2019-04-03 18:06 | NUR ---
MEDICATED WITH PO TYLENOL, CATAPRESS AND IM TORADOL ORDERED FOR L HIP PAIN AND HTN.
[2019-04-03 20:00] VITALS: BP 120/76
[2019-04-04] VITALS: BP 119/80
[2019-04-04 08:00] VITALS: BP 148/84
--- NOTE | 2019-04-04 08:36 | NUR ---
24 HR chart check completed.
--- NOTE | 2019-04-04 09:00 | NUR ---
Cutter Down in to see patient. He states he vomited about an hour ago and is not feeling well. No new needs or request at this time. He denies any home needs. When medically stable he will be discharged to home. Dr. Michaelle villafana consult for gallstones. He is receiving IVFs and BC/stool cultures are pending. O&P, cryptosporidium, and c-diff are negative.
--- NOTE | 2019-04-04 09:08 | NUR ---
SPOKE WITH GOLD ABOUT CONSULT
[2019-04-04 16:00] VITALS: BP 145/70
[2019-04-04 20:00] VITALS: BP 133/64
[2019-04-05] VITALS: BP 133/67
[2019-04-05 06:37] LABS: BASO % 0.3 % (0.0-1.0); EOS # 0.6 10*3/uL (0.0-0.4); EOS % 6.3 % (1.0-4.0); HEMATOCRIT 33.9 % (42.0-52.0); HEMOGLOBIN 10.8 g/dl (14.0-18.0); LYMPH # 1.8 10*3/uL (1.3-4.4); LYMPH % 18.7 % (27.0-41.0); MEAN CELL VOLUME 92.1 fl (80.0-94.0); MEAN CORPUSCULAR HGB 29.3 pg (27.0-31.0); MEAN CORPUSCULAR HGB CONC 31.9 g/dl (33.0-37.0); MEAN PLATELET VOLUME 9.1 fl (9.6-12.3); MONO # 0.7 10*3/uL (0.1-1.0); MONO % 6.8 % (3.0-9.0); NEUT # 6.5 10*3/uL (2.3-7.9); NEUT % 67.6 % (47.0-73.0); PLATELET COUNT AUTOMATED 270 10*3/uL (130-400); RED BLOOD COUNT 3.68 10*6/uL (4.50-5.90); RED CELL DISTRI WIDTH 13.9 % (0-14.5); WHITE BLOOD COUNT 9.7 10*3/uL (4.8-10.8)
[2019-04-05 06:58] LABS: BUN 17 mg/dl (7-24); CHLORIDE 111 mmol/L (98-107); POTASSIUM 4.2 mmol/L (3.5-5.1); SODIUM 139 mmol/L (136-145)
[2019-04-05 06:59] LABS: CREATININE 1.12 mg/dL (0.70-1.30)
[2019-04-05 08:00] VITALS: BP 132/66
--- NOTE | 2019-04-05 10:45 | NUR ---
Discharge instructions reviewed with patient/family. Patient receptive and verbalizes understanding. Follow-up care arranged. Written instructions given to patient/family. Patient was wheeled from unit by staff member with all personal belongings accounted for. VANCE LALA
== END 2019-04-05 12:07 | disposition home or self-care (01) | DRG 683 ==
LOC: ED 11:58 → 5E 14:25 → EDHOLD 14:25 → 5E 14:36
PROVIDERS: Emergency Medicine; ADMIT Internal Medicine
DX: N17.9 Acute kidney failure, unspecified (principal); E87.2 Acidosis; A08.4 Viral intestinal infection, unspecified; I10 Essential (primary) hypertension; E86.0 Dehydration; I25.10 Atherosclerotic heart disease of native coronary artery without angina pectoris; K76.0 Fatty (change of) liver, not elsewhere classified; C61 Malignant neoplasm of prostate; E11.43 Type 2 diabetes mellitus with diabetic autonomic (poly)neuropathy; K31.84 Gastroparesis; Z79.4 Long term (current) use of insulin; Z88.0 Allergy status to penicillin; Z82.49 Family history of ischemic heart disease and other diseases of the circulatory system; Z82.3 Family history of stroke

== ENCOUNTER 2019-05-07 08:22 | Emergency (ER) | payer MEDICARE ==
[~2019-05-07] VITALS: Ht 170.1 cm; Wt 79.4 kg
[~2019-05-07 08:22] MED LIST changes: +STARLIX60 M1 PO; +TEMAZEPAM15 M1 PO; +VITAMIN B122500 MCG PO; +VITAMIN C1000 M5 PO
[2019-05-07 08:31] VITALS: BP 159/109
[2019-05-07 10:47] LABS: BILIRUBIN NEGATIVE (NEGATIVE); BLOOD NEGATIVE (NEGATIVE); CLARITY SL CLOUDY (CLEAR); COLOR YELLOW (YELLOW); GLUCOSE 1+ (NEGATIVE); KETONE NEGATIVE (NEGATIVE); LEUKO ESTERASE NEGATIVE (NEGATIVE); NITRITE NEGATIVE (NEGATIVE); UROBILINOGEN 0.2 E.U./dl (0.2-1.0)
[2019-05-07 11:08] LABS: BACTERIA TRACE; RBC 0-2 rbc/hpf (0-2)
[2019-05-07 11:12] LABS: BASO % 0.3 % (0.0-1.0); EOS # 0.2 10*3/uL (0.0-0.4); EOS % 1.8 % (1.0-4.0); HEMATOCRIT 36.6 % (42.0-52.0); HEMOGLOBIN 11.8 g/dl (14.0-18.0); LYMPH # 1.4 10*3/uL (1.3-4.4); LYMPH % 15.3 % (27.0-41.0); MEAN CELL VOLUME 89.3 fl (80.0-94.0); MEAN CORPUSCULAR HGB 28.8 pg (27.0-31.0); MEAN CORPUSCULAR HGB CONC 32.2 g/dl (33.0-37.0); MEAN PLATELET VOLUME 8.9 fl (9.6-12.3); MONO # 0.6 10*3/uL (0.1-1.0); MONO % 6.4 % (3.0-9.0); NEUT # 7.1 10*3/uL (2.3-7.9); NEUT % 75.9 % (47.0-73.0); PLATELET COUNT AUTOMATED 340 10*3/uL (130-400); RED CELL DISTRI WIDTH 13.9 % (0-14.5); WHITE BLOOD COUNT 9.3 10*3/uL (4.8-10.8)
[2019-05-07 11:22] LABS: ACT PARTIAL THROMBO TIME 24.2 SECONDS (20.0-32.1)
[2019-05-07 11:26] LABS: ALBUMIN 3.5 gm/dl (3.1-4.5); ALKALINE PHOSPHATASE 133 U/L (45-117); BUN 10 mg/dl (7-24); CHLORIDE 108 mmol/L (98-107); CREATININE 1.23 mg/dL (0.70-1.30); LIPASE 76 U/L (73-393); POTASSIUM 3.2 mmol/L (3.5-5.1); SGOT/AST 21 IU/L (3-35); SGPT/ALT 27 U/L (12-78); SODIUM 138 mmol/L (136-145); TOTAL PROTEIN 7.2 gm/dL (6.4-8.2); TROPONIN I 0.021 ng/ml (<0.045)
[2019-05-07] MEDS ORDERED: ZOFRAN4 MG PO (11:56)
== END 2019-05-07 12:08 | disposition home or self-care (01) ==
LOC: ED 08:22
PROVIDERS: Emergency Medicine
DX: R11.2 Nausea with vomiting, unspecified (principal); R10.9 Unspecified abdominal pain; I10 Essential (primary) hypertension; E11.9 Type 2 diabetes mellitus without complications; I25.2 Old myocardial infarction; I25.10 Atherosclerotic heart disease of native coronary artery without angina pectoris; K21.9 Gastro-esophageal reflux disease without esophagitis; E78.00 Pure hypercholesterolemia, unspecified; Z88.0 Allergy status to penicillin; Z79.899 Other long term (current) drug therapy; Z79.82 Long term (current) use of aspirin

== ENCOUNTER 2019-05-23 17:33 | Emergency (ER) | payer MEDICARE ==
[~2019-05-23] VITALS: Ht 170.1 cm; Wt 79.4 kg
[~2019-05-23 17:33] MED LIST changes: +ZOFRAN4 MG PO
[2019-05-23 17:39] VITALS: BP 184/81
[2019-05-23 19:10] LABS: BASO % 0.2 % (0.0-1.0); EOS # 0.3 10*3/uL (0.0-0.4); EOS % 3.3 % (1.0-4.0); HEMATOCRIT 33.8 % (42.0-52.0); HEMOGLOBIN 10.8 g/dl (14.0-18.0); LYMPH # 2.4 10*3/uL (1.3-4.4); LYMPH % 25.7 % (27.0-41.0); MEAN CELL VOLUME 91.1 fl (80.0-94.0); MEAN CORPUSCULAR HGB 29.1 pg (27.0-31.0); MEAN PLATELET VOLUME 9.4 fl (9.6-12.3); MONO # 0.7 10*3/uL (0.1-1.0); MONO % 7.5 % (3.0-9.0); NEUT # 5.8 10*3/uL (2.3-7.9); NEUT % 63.1 % (47.0-73.0); PLATELET COUNT AUTOMATED 335 10*3/uL (130-400); RED BLOOD COUNT 3.71 10*6/uL (4.50-5.90); RED CELL DISTRI WIDTH 14.2 % (0-14.5); WHITE BLOOD COUNT 9.2 10*3/uL (4.8-10.8)
[2019-05-23 19:41] LABS: ALBUMIN 3.6 gm/dl (3.1-4.5); CREATININE 1.49 mg/dL (0.70-1.30); POTASSIUM 3.7 mmol/L (3.5-5.1); TOTAL PROTEIN 7.4 gm/dL (6.4-8.2)
== END 2019-05-23 20:36 | disposition home or self-care (01) ==
LOC: ED 17:33
PROVIDERS: Physician Assistant
DX: E11.65 Type 2 diabetes mellitus with hyperglycemia (principal); I10 Essential (primary) hypertension; I25.10 Atherosclerotic heart disease of native coronary artery without angina pectoris; I25.2 Old myocardial infarction; K21.9 Gastro-esophageal reflux disease without esophagitis; E78.00 Pure hypercholesterolemia, unspecified; Z88.0 Allergy status to penicillin; Z79.899 Other long term (current) drug therapy; Z79.82 Long term (current) use of aspirin; Z98.61 Coronary angioplasty status

== ENCOUNTER → 2019-09-06 | Outpatient (CLI) | payer MEDICARE ==
[~2019-09-06] MED LIST changes: +ACTOS15 M1 PO; +AMBIEN5 MG PO; +LASIX40 MG PO; +METFORMIN HYD1000 MG PO
[2019-09-06 09:16] LABS: BASO % 0.3 % (0.0-1.0); EOS # 0.4 10*3/uL (0.0-0.4); EOS % 3.2 % (1.0-4.0); HEMATOCRIT 37.5 % (42.0-52.0); LYMPH # 1.9 10*3/uL (1.3-4.4); LYMPH % 17.5 % (27.0-41.0); MEAN CELL VOLUME 94.2 fl (80.0-94.0); MEAN CORPUSCULAR HGB 30.4 pg (27.0-31.0); MEAN CORPUSCULAR HGB CONC 32.3 g/dl (33.0-37.0); MEAN PLATELET VOLUME 9.1 fl (9.6-12.3); MONO # 0.7 10*3/uL (0.1-1.0); NEUT # 8.1 10*3/uL (2.3-7.9); NEUT % 72.7 % (47.0-73.0); PLATELET COUNT AUTOMATED 280 10*3/uL (130-400); RED BLOOD COUNT 3.98 10*6/uL (4.50-5.90); RED CELL DISTRI WIDTH 14.8 % (0-14.5); WHITE BLOOD COUNT 11.1 10*3/uL (4.8-10.8)
[2019-09-06 09:33] LABS: ALBUMIN 3.5 gm/dl (3.1-4.5); ALKALINE PHOSPHATASE 110 U/L (45-117); BUN 13 mg/dl (7-24); CHLORIDE 108 mmol/L (98-107); CHOLESTEROL 148 mg/dL (<200); CREATININE 1.01 mg/dL (0.70-1.30); FREE T4 1.09 ng/dl (0.76-1.46); HDL CHOLESTEROL 58 mg/dl (40-60); LDL CHOLESTEROL 67 mg/dL (9-159); POTASSIUM 3.5 mmol/L (3.5-5.1); SGOT/AST 17 IU/L (3-35); SGPT/ALT 21 U/L (12-78); SODIUM 139 mmol/L (136-145); TRIGLYCERIDES 116 mg/dl (<150); VLDL CHOLESTEROL 23 mg/dL (6-40)
[2019-09-06 11:47] LABS: VITAMIN D, 25-HYDROXY 33.6 ng/mL (30-100)
== END | disposition home or self-care (01) ==
LOC: LAB 08:48
PROVIDERS: Internal Medicine
DX: Z00.00 Encounter for general adult medical examination without abnormal findings (principal); E11.65 Type 2 diabetes mellitus with hyperglycemia; I10 Essential (primary) hypertension; E55.9 Vitamin D deficiency, unspecified; E78.2 Mixed hyperlipidemia

== ENCOUNTER 2019-09-13 10:15 | Emergency (ER) | payer MEDICARE ==
[~2019-09-13] VITALS: Ht 170.1 cm; Wt 80.3 kg
[~2019-09-13 10:15] MED LIST changes: -ACTOS15 M1 PO; -AMBIEN5 MG PO; -LASIX40 MG PO; -METFORMIN HYD1000 MG PO
[2019-09-13 10:58] LABS: BASO % 0.3 % (0.0-1.0); EOS # 0.2 10*3/uL (0.0-0.4); HEMATOCRIT 36.1 % (42.0-52.0); LYMPH # 1.6 10*3/uL (1.3-4.4); LYMPH % 15.9 % (27.0-41.0); MEAN CELL VOLUME 94.8 fl (80.0-94.0); MEAN CORPUSCULAR HGB 30.2 pg (27.0-31.0); MEAN CORPUSCULAR HGB CONC 31.9 g/dl (33.0-37.0); MEAN PLATELET VOLUME 9.3 fl (9.6-12.3); MONO # 0.7 10*3/uL (0.1-1.0); MONO % 7.2 % (3.0-9.0); NEUT # 7.4 10*3/uL (2.3-7.9); NEUT % 74.3 % (47.0-73.0); PLATELET COUNT AUTOMATED 261 10*3/uL (130-400); RED BLOOD COUNT 3.81 10*6/uL (4.50-5.90); RED CELL DISTRI WIDTH 15.1 % (0-14.5)
[2019-09-13 11:07] LABS: ACT PARTIAL THROMBO TIME 26.3 SECONDS (20.0-32.1); INTERNATIONAL NORM RATIO 1.1 (2.0-3.5)
[2019-09-13 11:15] LABS: ALBUMIN 3.5 gm/dl (3.1-4.5); ALKALINE PHOSPHATASE 101 U/L (45-117); BUN 15 mg/dl (7-24); CHLORIDE 108 mmol/L (98-107); CREATININE 1.06 mg/dL (0.70-1.30); LIPASE 106 U/L (73-393); POTASSIUM 3.8 mmol/L (3.5-5.1); SGOT/AST 16 IU/L (3-35); SODIUM 139 mmol/L (136-145); TROPONIN I 0.027 ng/ml (<0.045)
[2019-09-13 11:20] LABS: SGPT/ALT 20 U/L (12-78)
[2019-09-13 11:39] LABS: COLOR YELLOW (YELLOW)
[2019-09-13 11:40] LABS: BILIRUBIN NEGATIVE (NEGATIVE); BLOOD NEGATIVE (NEGATIVE); CLARITY CLEAR (CLEAR); GLUCOSE NEGATIVE (NEGATIVE); KETONE NEGATIVE (NEGATIVE); LEUKO ESTERASE NEGATIVE (NEGATIVE); NITRITE NEGATIVE (NEGATIVE); UROBILINOGEN 0.2 E.U./dl (0.2-1.0); WBC 0-2 wbc/hpf (0-5)
[2019-09-13 12:15] VITALS: BP 159/88
[2019-09-13] MEDS ORDERED: LASIX40 MG PO (12:25)
== END 2019-09-13 12:35 | disposition home or self-care (01) ==
LOC: ED 10:15
PROVIDERS: Family Medicine
DX: I50.9 Heart failure, unspecified (principal); Z88.0 Allergy status to penicillin; Z79.899 Other long term (current) drug therapy; Z79.84 Long term (current) use of oral hypoglycemic drugs; Z79.82 Long term (current) use of aspirin; Z79.2 Long term (current) use of antibiotics

== ENCOUNTER 2019-09-19 12:37 | Inpatient (IN) | payer MEDICARE ==
[~2019-09-19] VITALS: Ht 170.2 cm; Wt 75.1 kg
[2019-09-19 12:37] VITALS: BP 152/87
[~2019-09-19 12:37] MED LIST changes: +LASIX40 MG PO
[2019-09-19 13:05] LABS: BASO % 0.3 % (0.0-1.0); EOS # 0.1 10*3/uL (0.0-0.4); HEMATOCRIT 33.8 % (42.0-52.0); LYMPH # 1.5 10*3/uL (1.3-4.4); LYMPH % 13.1 % (27.0-41.0); MEAN CORPUSCULAR HGB 30.7 pg (27.0-31.0); MEAN PLATELET VOLUME 9.4 fl (9.6-12.3); MONO # 0.9 10*3/uL (0.1-1.0); MONO % 7.4 % (3.0-9.0); NEUT % 77.9 % (47.0-73.0); PLATELET COUNT AUTOMATED 269 10*3/uL (130-400); RED BLOOD COUNT 3.52 10*6/uL (4.50-5.90); RED CELL DISTRI WIDTH 15.2 % (0-14.5); WHITE BLOOD COUNT 11.5 10*3/uL (4.8-10.8)
[2019-09-19 13:14] LABS: ACT PARTIAL THROMBO TIME 26.8 SECONDS (20.0-32.1); INTERNATIONAL NORM RATIO 1.1 (2.0-3.5)
[2019-09-19 13:23] LABS: ALBUMIN 3.6 gm/dl (3.1-4.5); ALKALINE PHOSPHATASE 94 U/L (45-117); BUN 20 mg/dl (7-24); CHLORIDE 104 mmol/L (98-107); CREATININE 1.23 mg/dL (0.70-1.30); POTASSIUM 3.7 mmol/L (3.5-5.1); SGOT/AST 29 IU/L (3-35); SGPT/ALT 35 U/L (12-78); SODIUM 136 mmol/L (136-145); TOTAL PROTEIN 7.1 gm/dL (6.4-8.2)
[2019-09-19 13:27] LABS: TROPONIN I 0.144 ng/ml (<0.045)
[2019-09-19 14:31] VITALS: BP 129/88
--- NOTE | 2019-09-19 16:05 | NUR ---
A 84, admitted to , under the services of MARIAM Banks MD with a diagnosis of CHF. Chief complaint is JUVE. Patient arrived via bed from ER. Monitor applied. Initial assessment completed. Vital signs taken and recorded. MARIAM BANKS MD notified of admission to the unit. Orders received. See assessment for past medical history, medications and allergies. Patient and/or family oriented to unit. [facility] Clothing/patient valuable form completed. DALE MOREJON
[2019-09-19] MEDS ORDERED: AMBIEN5 MG PO (17:00)
--- NOTE | 2019-09-19 17:34 | NUR ---
ANSWERING SERVICE NOTIFIED OF CONSULT
--- NOTE | 2019-09-19 19:00 | NUR ---
PATIENT VOICED NO COMPLAINTS. NO OVERT DISTRESS NOTED. CALL LIGHT WITHIN REACH
[2019-09-19 20:00] VITALS: BP 138/88; BP 146/99
--- NOTE | 2019-09-19 20:00 | NUR ---
AWARE OF ELEVATED TROPONINS. TROPONIN IS NOW TRENDING DOWN AT 0.134
--- NOTE | 2019-09-19 20:46 | NUR ---
DR. MEJIA NOTIFIED OF TROPONIN TRENDING DOWN
--- NOTE | 2019-09-19 20:47 | NUR ---
AWARE OF CONSULT.
[2019-09-20] VITALS: BP 142/86
[2019-09-20 08:00] VITALS: BP 106/88; BP 128/70
--- NOTE | 2019-09-20 10:30 | NUR ---
Dr. Paiz notified abnormal echo/low EF.
--- NOTE | 2019-09-20 11:52 | NUR ---
Spooler Operator in to talk to patient. Patient states lives at HOME with AND DAUGHTER. There are FEW steps in the home. HAS STAIR LIFT Physician: ROBERTO Pharmacy: [facility] Home health services: NONE Patient's level of ADLs: INDEPENDENT Patient has working utilities: YES DME: NONE Follow-up physician's appointment after d/c: PREFERS TO MAKE OWN AFTER DISCHARGE Does patient want to access PORTAL?: NO Discharge plan PT LIVES AT HOME WITH HIS AND DAUGHTER AND IS INDEPENDENT IN HIS CARE. PT STATES THERE ARE STAIRS IN THE HOUSE BUT HE HAS A STAIR LIFT ON THEM IF HE NEEDS TO USE THEM. DENIES HE WILL HAVE ANY NEEDS ON DISCHARGE. PLAN IS TO RETURN HOME WITH AND DAUGHTER WHEN MEDICALLY STABLE. WILL CONTINUE TO FOLLOW. STATES HE WILL HAVE A RIDE HOME.. EUNICE FUENTES
[2019-09-20 12:00] VITALS: BP 110/82
[2019-09-20 16:00] VITALS: BP 146/87
[2019-09-20 20:00] VITALS: BP 145/74
--- NOTE | 2019-09-20 20:05 | NUR ---
24 HR chart check completed.
--- NOTE | 2019-09-20 20:30 | NUR ---
SITTING AT BEDSIDE WITH NO DISTRESS NOTED. RESPIRATIONS EASY. LUNGS DIMINISHED WITH PB RALES. PULSE OX 96% 2L. TRACE BLE EDEMA. CALL LIGHT WITHIN REACH. NO VOICED COMPLAINTS. NPO STATUS AFTER MIDNIGHT DISCUSSED FOR TESTING IN AM, VOICED UNDERSTANDING
[2019-09-21] VITALS: BP 133/79
--- NOTE | 2019-09-21 | NUR ---
SLEEPING. NO DISTRESS NOTED. RESPIRATIONS EASY. VSS. CALL LIGHT WITHIN REACH.
[2019-09-21] MEDS ORDERED: ACTOS15 M1 PO (00:06)
[2019-09-21] MEDS ORDERED: METFORMIN HYD1000 MG PO ×2 (00:15→00:16)
--- NOTE | 2019-09-21 06:00 | NUR ---
SLEPT THROUGHOUT NIGHT WITH NO DISTRESS NOTED. RESPIRATIONS EASY. O2 IN USE. CALL LIGHT WITHIN REACH. NO VOICED COMPLAINTS THIS SHIFT. NPO STATUS MAINTAINED FOR TESTING THIS AM
--- NOTE | 2019-09-21 06:10 | NUR ---
DR MEJIA HERE TO ASSESS PATIENT AND DISCUSS PLAN OF CARE
--- NOTE | 2019-09-21 06:15 | NUR ---
TRANSPORTED OFF FLOOR VIA WC FOR TESTING
[2019-09-21 06:25] LABS: BASO % 0.3 % (0.0-1.0); BUN 20 mg/dl (7-24); CHLORIDE 106 mmol/L (98-107); CREATININE 1.02 mg/dL (0.70-1.30); EOS # 0.3 10*3/uL (0.0-0.4); EOS % 2.3 % (1.0-4.0); HEMATOCRIT 32.3 % (42.0-52.0); LYMPH # 1.6 10*3/uL (1.3-4.4); LYMPH % 14.5 % (27.0-41.0); MEAN CELL VOLUME 95.3 fl (80.0-94.0); MEAN CORPUSCULAR HGB 29.8 pg (27.0-31.0); MEAN CORPUSCULAR HGB CONC 31.3 g/dl (33.0-37.0); MEAN PLATELET VOLUME 9.8 fl (9.6-12.3); MONO # 0.9 10*3/uL (0.1-1.0); MONO % 7.9 % (3.0-9.0); NEUT # 8.3 10*3/uL (2.3-7.9); NEUT % 74.7 % (47.0-73.0); PLATELET COUNT AUTOMATED 251 10*3/uL (130-400); POTASSIUM 3.3 mmol/L (3.5-5.1); RED BLOOD COUNT 3.39 10*6/uL (4.50-5.90); RED CELL DISTRI WIDTH 14.9 % (0-14.5); SODIUM 138 mmol/L (136-145); WHITE BLOOD COUNT 11.2 10*3/uL (4.8-10.8)
--- NOTE | 2019-09-21 06:30 | NUR ---
INFORMED CONSENT OBTAINED FOR LEXISCAN NUCLEAR STRESS TEST WITH DR. MEJIA. RESTING EKG NSR WITH FREQUENT PVC'S WITH A RESTING HR OF 88 WITH BP OF 122/78. LUNGS WITH RALES PB. SPO2 OF 95% WITH NASAL O2 AT 2L. PT COMPLETED A 1:00 LEXISCAN PROTOCOL RECEIVING LEXISCAN 0.4 MG IV OVER 10 SECONDS. HAD NO CHEST PAIN OR ANY EKG CHANGES. DID C/O FEELING SHORT OF BREATH THAT WAS RELIEVED IN RECOVERY. HAD LESS PVC'S WITH TESTING BUT HAD A PVC TRIPLET. HAD A PEAK HR OF 97 WITH BP OF 134/70. LAST RECOVERY HR OF 96 WITH BP OF 134/80. AWAITING SCANNING IN STABLE CONDITION.
--- NOTE | 2019-09-21 07:54 | NUR ---
PATIENT RETURNED TO FLOOR FROM STRESS TEST. BREAKFAST ORDER OBTAINED.
[2019-09-21 08:00] VITALS: BP 151/74
--- NOTE | 2019-09-21 10:00 | NUR ---
PT AWAKE, ALERT, AND ORIENTED. LUNGS DIMINISHED T/O. PT DENIES ANY PAIN. O2 IN PLACE @ 2L PER NC. ABD SOFT & NONTENDER. MEDICATIONS TAKEN WITHOUT DIFFICULTY. PT STATES THAT ROOM PHONE IS NOT WORKING WHEN HIS ATTEMPTS TO CALL. CALLLED PHONE AT THIS TIME FROM ANOTHER PHONE AND IT DID RING & FUNCTION FINE. TOLD PATIENT IF HE NEEDS ASSISTANCE WITH [place] TO LET US KNOW, BUT IT SEEMS TO BE WORKING OK.
[2019-09-21 12:00] VITALS: BP 142/75
--- NOTE | 2019-09-21 12:27 | NUR ---
PT CONTINUES TO DENY NEEDS AT HOME ON DISCHARGE. WILL CONTINUE TO FOLLOW.
[2019-09-21 16:00] VITALS: BP 135/71
--- NOTE | 2019-09-21 18:53 | NUR ---
CALLED 'S ANSWERING SERVICE TO REPORT MESSAGE OF 7-BEAT RUN OF [employer].
--- NOTE | 2019-09-21 18:55 | NUR ---
NOTIFIED OF V-TACH. HE STATES PATIENT CAN STAY HERE THE WEEKEND BUT WILL NEED TO BE TRANSFERRED FOR HEART CATH Tuesday DUE TO HOLIDAY WEEKEND.
--- NOTE | 2019-09-21 19:44 | NUR ---
24 HR chart check completed.
[2019-09-21 20:00] VITALS: BP 143/78
--- NOTE | 2019-09-21 21:00 | NUR ---
SITTING AT BEDSIDE, NO DISTRESS NOTED. RESPIRATIONS EASY. LUNGS DIMINISHED WITH PB RALES. PULSE OX 95% 2L. INFEQUENT COUGH. TRACE BLE EDEMA. CALL LIGHT WITHIN REACH. NO VOICED COMPLAINTS
[2019-09-22] VITALS: BP 100/63
--- NOTE | 2019-09-22 | NUR ---
REMAINS AWAKE. NO DISTRESS NOTED. RESPIRATIONS EASY. VSS. CALL LIGHT WITHIN REACH. NO VOICED COMPLAINTS
--- NOTE | 2019-09-22 06:00 | NUR ---
RESTED THROUGHOUT NIGHT WITH NO DISTRESS NOTED. RESPIRATIONS EASY. CALL LIGHT WITHIN REACH. NO VOICED COMPLAINTS THIS SHIFT
[2019-09-22 08:00] VITALS: BP 128/72; BP 134/83
--- NOTE | 2019-09-22 08:32 | NUR ---
DR MEJIA ROUNDED AND SEEN PT.
--- NOTE | 2019-09-22 11:40 | NUR ---
PT SITTING UP AT BEDSIDE WATCHING TV. PT ATE 75% OF LUNCH.VOICES NO NEEDS.RESPS EASY ON RA.STABLE AT THIS TIME.WILL CONTINUE TO MONITOR.CALL LIGHT WITHIN REACH.
[2019-09-22 12:00] VITALS: BP 116/61
[2019-09-22 16:00] VITALS: BP 133/62
--- NOTE | 2019-09-22 16:36 | NUR ---
PT AMBULATING HALLWAYS.NO DYSPNEA NOTED. RESPS EASY ON RA.PT TOLERATED WELL. WILL CONTINUE TO MONITOR.
--- NOTE | 2019-09-22 17:17 | NUR ---
PT RESTING IN BED WATCHING TV. VOICES NO NEEDS. BGM 119. NO COVERAGE GIVEN PER SLIDING SCALE.RESPS EASY ON RA. CALL LIGHT IN REACH.
[2019-09-22 20:00] VITALS: BP 154/84
--- NOTE | 2019-09-22 20:45 | NUR ---
IN TO ASSESS PATIENT. PATIENT PLEASANT AND COOPERATIVE. DENIES ANY CHEST PAIN OR SHORTNESS OF BREATH. STATES HE'S ONLY WEARING OXYGEN BECAUSE HE WAS TOLD TO. PATIENT WAS UP EARLIER AMBULATING IN HALLWAYS. STATES HE WOULD LIKE TO TAKE ALL OF HIS MEDICATION AT 2200. CALL LIGHT LEFT WITHIN REACH WILL MONITOR
--- NOTE | 2019-09-22 23:22 | NUR ---
24 HR chart check completed.
[2019-09-23] VITALS: BP 143/85
--- NOTE | 2019-09-23 00:50 | NUR ---
DR. MEJIA CALLED AT THIS TIME AT PATIENT REQUEST FOR ORDERS FOR PAIN MEDICATION FOR RIGHT NECK AND SCAPULAR PAIN 12/09. ORDERS RECEIVED, SEE EMAR.
--- NOTE | 2019-09-23 01:14 | NUR ---
MIMI RADFORD GIVEN FOR PT COMPLAINTS OF PAIN IN THE RIGHT SHOULDER AREA INTO NECK. STATES HE SLEPT ON IT WRONG THE NIGHT BEFORE LAST AND IT'S BOTHERING HIM MORE TONIGHT THAN LAST NIGHT. RATES IT 12/09. PATIENT ATTEMPTED TO GET UP AND WALK AROUND AND SEE IF HE COULD WORK THE KINK OUT OF HIS NECK BUT WAS UNABLE. CALL LIGHT WITHIN REACH, TAZ GANDHI
--- NOTE | 2019-09-23 02:14 | NUR ---
PRN MEDICATION APPEARS EFFECTIVE,PT SLEEPING
--- NOTE | 2019-09-23 04:18 | NUR ---
PATIENT CONTINUES TO SLEEP, NO DISTRESS NOTED. CALL LIGHT WITHIN REACH, WILL MONITOR
[2019-09-23 06:28] LABS: BASO % 0.2 % (0.0-1.0); EOS # 0.3 10*3/uL (0.0-0.4); EOS % 2.5 % (1.0-4.0); HEMATOCRIT 33.4 % (42.0-52.0); LYMPH # 2.2 10*3/uL (1.3-4.4); LYMPH % 17.9 % (27.0-41.0); MEAN CELL VOLUME 95.7 fl (80.0-94.0); MEAN CORPUSCULAR HGB 30.1 pg (27.0-31.0); MEAN CORPUSCULAR HGB CONC 31.4 g/dl (33.0-37.0); MONO % 8.4 % (3.0-9.0); NEUT # 8.6 10*3/uL (2.3-7.9); NEUT % 70.8 % (47.0-73.0); PLATELET COUNT AUTOMATED 280 10*3/uL (130-400); RED BLOOD COUNT 3.49 10*6/uL (4.50-5.90); WHITE BLOOD COUNT 12.2 10*3/uL (4.8-10.8)
[2019-09-23 06:46] LABS: BUN 19 mg/dl (7-24); CHLORIDE 107 mmol/L (98-107); CREATININE 1.13 mg/dL (0.70-1.30); POTASSIUM 3.5 mmol/L (3.5-5.1); SODIUM 138 mmol/L (136-145)
[2019-09-23 10:38] VITALS: BP 152/77
--- NOTE | 2019-09-23 10:38 | NUR ---
PT CALLED OUT TO SAY HE WASN'T FEELING WELL. PT DRY HEAVING AND DIAPHORETIC. DENIES CP/PRESSURE,. SOB NOTED.PLACED 2LNC ON PT AT THIS TIME.SPO2 89%.STAT EKG ORDERED. VITALS OBTAINED.NOTIFIED DR MEJIA,ORDERS RECIEVED.
[2019-09-23 12:00] VITALS: BP 135/85; BP 152/77
[2019-09-23 12:00] LABS: BASO % 0.2 % (0.0-1.0); EOS # 0.2 10*3/uL (0.0-0.4); HEMATOCRIT 34.2 % (42.0-52.0); LYMPH # 1.4 10*3/uL (1.3-4.4); LYMPH % 11.1 % (27.0-41.0); MEAN CELL VOLUME 96.1 fl (80.0-94.0); MEAN CORPUSCULAR HGB 30.6 pg (27.0-31.0); MEAN CORPUSCULAR HGB CONC 31.9 g/dl (33.0-37.0); MEAN PLATELET VOLUME 9.4 fl (9.6-12.3); MONO # 0.9 10*3/uL (0.1-1.0); MONO % 7.6 % (3.0-9.0); NEUT # 9.7 10*3/uL (2.3-7.9); NEUT % 78.8 % (47.0-73.0); PLATELET COUNT AUTOMATED 277 10*3/uL (130-400); RED BLOOD COUNT 3.56 10*6/uL (4.50-5.90); RED CELL DISTRI WIDTH 14.7 % (0-14.5); WHITE BLOOD COUNT 12.3 10*3/uL (4.8-10.8)
[2019-09-23 12:12] LABS: BUN 19 mg/dl (7-24); CHLORIDE 108 mmol/L (98-107); CREATININE 1.18 mg/dL (0.70-1.30); POTASSIUM 3.8 mmol/L (3.5-5.1); SODIUM 137 mmol/L (136-145)
--- NOTE | 2019-09-23 12:20 | NUR ---
PT FEELING "SOMEWHAT BETTER". RESTING IN BED WITH EYES CLOSED.RESPS EASY ON 2LNC.PT AROUSES EASILY.ATE 50% OF LUNCH.STABLE AT THIS TIME. WILL CONTINUE TO MONITOR.CALL LIGHT IN REACH.
[2019-09-23 16:00] VITALS: BP 153/84
[2019-09-23 20:00] VITALS: BP 114/73
--- NOTE | 2019-09-23 20:23 | NUR ---
PRN TYLENOL GIVEN FOR PT COMPLAINTS OF RIGHT SCAPULAR PAIN. EXPLAINED TO PATIENT THAT THE DOCTOR BELIEVES HE GOT SICK FROM THE PAIN MEDICATION LAST NIGHT AND WOULD LIKE TO ONLY TRY TYLENOL RIGHT NOW. PATIENT VERBALIZED UNDERSTANDING. CALL LIGHT WITHIN REACH, WILL MONITOR
--- NOTE | 2019-09-23 21:23 | NUR ---
PRN TYLENOL SOMEWHAT EFFECTIVE PER PT. PATIENT STILL HAVING SOME SCAPULAR PAIN. KPAD PROVIDED BUT PATIENT STATED IT WAS TOO WARM. EXPLAINED TO PATIENT THAT HE CAN HAVE TYLENOL Q4H HOURS IF HE NEEDS IT. PATIENT VERBALIZED UNDERSTANDING
[2019-09-24] VITALS: BP 124/85
--- NOTE | 2019-09-24 02:53 | NUR ---
PT ASLEEP IN BED. WILL MONITOR.
[2019-09-24] MEDS ORDERED: CARVEDILOL3.125 MG PO (07:19)
[2019-09-24] MEDS ORDERED: LISINOPRIL2.5 MG PO (07:19)
[2019-09-24] MEDS ORDERED: GLIMEPIRIDE4 M1 PO (07:19)
--- NOTE | 2019-09-24 07:28 | NUR ---
24 HR chart check completed.
[2019-09-24 08:00] VITALS: BP 148/83
--- NOTE | 2019-09-24 08:00 | NUR ---
Patient resting quietly with no c/o discomfort. Respirations easy and regular. Vital signs stable. No overt distress. CHEST TUBE SITE TO R POSTERIOR CHEST REINFORCED AND REMAINS TO 20CMS WALL SUCTION, PATENT FOR YELLOW. ISABELLA WARE
--- NOTE | 2019-09-24 08:00 | NUR ---
Patient resting quietly with no c/o discomfort. Respirations easy and regular. Vital signs stable. No overt distress. ISABELLA WARE
--- NOTE | 2019-09-24 10:45 | NUR ---
CONCERNED WITH HOW PT WILL BE TRANSPORTED HOME FROM [place]. RN ADVISED HER TO F/U WITH [facility] AT [place] TOMORROW.
[2019-09-24 12:00] VITALS: BP 119/70
[2019-09-24 16:00] VITALS: BP 144/61
[2019-09-24 20:00] VITALS: BP 148/56
[2019-09-25] VITALS: BP 133/51
--- NOTE | 2019-09-25 02:15 | NUR ---
PT NOW ASLEEP IN BED. NO S/S OF DISTRESS NOTED. WILL MONITOR. CALL LIGHT IN REACH.
--- NOTE | 2019-09-25 07:38 | NUR ---
EMS HERE TO TRANSFER PT.
--- NOTE | 2019-09-25 07:39 | NUR ---
SPOKE TO KELSEY AT [place] [facility]. NURSE TO NURSE REPORT GIVEN. RN REQUESTING SHA[facility]ILLE'S CONSULT/PROGRESS NOTE, RECENT EKG (WITHIN 7 DAYS), AND MEDICATION IST (INCLUDING HOSPITAL MEDS & HOME MEDS). ALSO REQUESTING SEPARATE NOTE WITH PATIENT'S GLUCOSE FROM THIS AM.
--- NOTE | 2019-09-25 07:42 | NUR ---
[facility] AWARE THAT EMS HAS JUST NOW ARRIVED. WILL BE ON THEIR WAY SHORTLY.
--- NOTE | 2019-09-25 07:43 | NUR ---
PT TAKEN OFF FLOOR IN CARE OF AMBULANCE. [place] AWARE OF LATE DEPARTURE. PATIENT ALERT & ORIENTED X3. ALL BELONGINGS SENT WITH PATIENT. PACKET INCLUDES ALL INFORMATION REQUESTED BY KELSEY FROM [place]. PATIENT STATES HE WILL CALL HIS HIMSELF.
== END 2019-09-25 07:43 | disposition short-term general hospital (02) | DRG 280 ==
LOC: ED 12:37 → 5E 14:58 → EDHOLD 14:58 → 5E 15:08
PROVIDERS: Emergency Medicine; ADMIT Internal Medicine
PROC: 4A02XM4 Measurement of Cardiac Total Activity, External Approach (ICD-10-PCS; principal; 2019-09-19)
PROC: 3E073KZ Introduction of Other Diagnostic Substance into Coronary Artery, Percutaneous Approach (ICD-10-PCS; principal; 2019-09-19)
DX: I21.4 Non-ST elevation (NSTEMI) myocardial infarction (principal); I50.41 Acute combined systolic (congestive) and diastolic (congestive) heart failure; E87.2 Acidosis; I47.2 Ventricular tachycardia; I11.0 Hypertensive heart disease with heart failure; C61 Malignant neoplasm of prostate; D64.9 Anemia, unspecified; E11.9 Type 2 diabetes mellitus without complications; Z88.0 Allergy status to penicillin; Z79.82 Long term (current) use of aspirin; Z79.84 Long term (current) use of oral hypoglycemic drugs; Z95.1 Presence of aortocoronary bypass graft; Z96.651 Presence of right artificial knee joint; Z95.5 Presence of coronary angioplasty implant and graft

== ENCOUNTER 2019-11-05 10:28 | Inpatient (IN) | payer MEDICARE ==
[~2019-11-05] VITALS: Ht 170.1 cm; Wt 76.8 kg
[~2019-11-05 10:28] MED LIST changes: +ACTOS15 M1 PO; +AMBIEN5 MG PO; +CARVEDILOL3.125 MG PO; +GLIMEPIRIDE4 M1 PO; +LISINOPRIL2.5 MG PO; +METFORMIN HYD1000 MG PO
[2019-11-05 10:48] VITALS: BP 129/85
[2019-11-05 11:05] LABS: BASO % 0.3 % (0.0-1.0); EOS # 0.3 10*3/uL (0.0-0.4); EOS % 3.1 % (1.0-4.0); HEMATOCRIT 36.4 % (42.0-52.0); LYMPH # 1.6 10*3/uL (1.3-4.4); LYMPH % 18.3 % (27.0-41.0); MEAN CELL VOLUME 93.8 fl (80.0-94.0); MEAN CORPUSCULAR HGB 29.6 pg (27.0-31.0); MEAN CORPUSCULAR HGB CONC 31.6 g/dl (33.0-37.0); MEAN PLATELET VOLUME 8.8 fl (9.6-12.3); MONO # 0.7 10*3/uL (0.1-1.0); MONO % 7.3 % (3.0-9.0); NEUT # 6.3 10*3/uL (2.3-7.9); NEUT % 70.7 % (47.0-73.0); PLATELET COUNT AUTOMATED 307 10*3/uL (130-400); RED BLOOD COUNT 3.88 10*6/uL (4.50-5.90); WHITE BLOOD COUNT 8.9 10*3/uL (4.8-10.8)
[2019-11-05 11:13] LABS: ACT PARTIAL THROMBO TIME 34.3 SECONDS (20.0-32.1); INTERNATIONAL NORM RATIO 2.2 (2.0-3.5)
[2019-11-05 11:19] LABS: LIPASE 59 U/L (73-393)
[2019-11-05 11:20] LABS: ALBUMIN 3.4 gm/dl (3.1-4.5); ALKALINE PHOSPHATASE 109 U/L (45-117); BUN 23 mg/dl (7-24); CHLORIDE 108 mmol/L (98-107); CREATININE 1.15 mg/dL (0.70-1.30); POTASSIUM 4.3 mmol/L (3.5-5.1); SGOT/AST 17 IU/L (3-35); SGPT/ALT 19 U/L (12-78); SODIUM 136 mmol/L (136-145); TOTAL PROTEIN 7.2 gm/dL (6.4-8.2)
[2019-11-05 11:21] LABS: TROPONIN I < 0.015 ng/ml (<0.045)
[2019-11-05 12:00] VITALS: BP 129/80
--- NOTE | 2019-11-05 12:54 | NUR ---
DR. HERNANDEZ AT BEDSIDE
--- NOTE | 2019-11-05 13:29 | NUR ---
PATIENT HAS BEEN AMBULATING AROUND ROOM. HE IS IN NO APPARENT DISTRESS. MEAL TRAY ORDERED.
[2019-11-05 14:47] VITALS: BP 104/56
[2019-11-05 15:30] VITALS: BP 143/97
--- NOTE | 2019-11-05 15:30 | NUR ---
A 84, admitted to , under the services of MARIAM Banks MD with a diagnosis of ATRIAL FIBRILLATION WITH RVR. Chief complaint is AFIB. Patient arrived via bed from ER. Monitor applied. Initial assessment completed. Vital signs taken and recorded. MARIAM BANKS MD notified of admission to the unit. Orders received. See assessment for past medical history, medications and allergies. Patient and/or family oriented to unit. [facility] visitation policy reviewed. Clothing/patient valuable form completed. PAUL ARRINGTON
[2019-11-05] MEDS ORDERED: COREG6.25 MG PO (16:05)
[2019-11-05] MEDS ORDERED: AMARYL4 MG PO (16:07)
[2019-11-05] MEDS ORDERED: TRAZODONE50 MG PO (16:08)
[2019-11-05] MEDS ORDERED: LASIX40 MG PO (16:08)
[2019-11-05] MEDS ORDERED: WARFARIN SOD5 MG PO (16:10)
--- NOTE | 2019-11-05 16:15 | NUR ---
DR MEJIA CALLED FOR NEW CONSULT, WILL ADD ORDERS DESIRED
--- NOTE | 2019-11-05 16:25 | NUR ---
DR CORBIN CALLED FOR NEW CONSULT
--- NOTE | 2019-11-05 17:00 | NUR ---
DR CORBIN IN TO SEE PATIENT
--- NOTE | 2019-11-05 17:32 | NUR ---
Shift chart check completed.
--- NOTE | 2019-11-05 17:59 | NUR ---
DR CORBIN ON THE FLOOR AND STATES CHANGE COREG FROM 6.25 AND INCREASE IT TO 12.5 AND THAT HE IS OK WITH THE ORDER DILTIAZAM THAT WAS ORDERED
[2019-11-05 20:00] VITALS: BP 134/94
--- NOTE | 2019-11-05 21:15 | NUR ---
PT AMBULATORY IN HALLWAY AND BACK TO ROOM. NO SIGNS OF ACUTE DISTRESS NOTED. RESP-EASY AND REGULAR. REQUESTING SLEEPING PILL. TOLERATED ROUTINE MED WITH NO PROBLEM. CALL LIGHT IN REACH. SEE SHIFT ASSESSMENT.
--- NOTE | 2019-11-05 21:55 | NUR ---
CALLED DR. KRISHNAN PT REQUESTING SLEEPING PILL. ORDER TAKEN AND REVIEWED.
--- NOTE | 2019-11-05 23:26 | NUR ---
MEDICATED WITH AMBIEN PO PER PT REQUEST FOR INSOMNIA. SEE EMAR. CALL LIGHT IN REACH.
[2019-11-06] VITALS: BP 102/54
--- NOTE | 2019-11-06 01:00 | NUR ---
SLEEPING IN BED, RESP-EASY AND REGULAR. MEDICATION SEEM TO BE EFFECTIVE. CALL LIGHT IN REACH.
--- NOTE | 2019-11-06 05:25 | NUR ---
PT SLEEPING IN BED. AWAKENS EASILY. BSG-161, SEE EMAR. NO C/O AT THIS TIME. CALL LIGHT IN REACH.
[2019-11-06 06:39] LABS: BASO % 0.3 % (0.0-1.0); EOS # 0.3 10*3/uL (0.0-0.4); HEMATOCRIT 35.1 % (42.0-52.0); LYMPH # 1.9 10*3/uL (1.3-4.4); MEAN CELL VOLUME 95.4 fl (80.0-94.0); MEAN CORPUSCULAR HGB 30.4 pg (27.0-31.0); MEAN CORPUSCULAR HGB CONC 31.9 g/dl (33.0-37.0); MONO # 0.6 10*3/uL (0.1-1.0); MONO % 8.3 % (3.0-9.0); NEUT # 4.7 10*3/uL (2.3-7.9); NEUT % 62.3 % (47.0-73.0); PLATELET COUNT AUTOMATED 288 10*3/uL (130-400); RED BLOOD COUNT 3.68 10*6/uL (4.50-5.90); WHITE BLOOD COUNT 7.6 10*3/uL (4.8-10.8)
[2019-11-06 06:49] LABS: INTERNATIONAL NORM RATIO 3.1 (2.0-3.5)
[2019-11-06 06:57] LABS: ALKALINE PHOSPHATASE 107 U/L (45-117); BUN 21 mg/dl (7-24); CHLORIDE 109 mmol/L (98-107); POTASSIUM 4.1 mmol/L (3.5-5.1); SGOT/AST 18 IU/L (3-35); SGPT/ALT 15 U/L (12-78); SODIUM 138 mmol/L (136-145); TOTAL PROTEIN 6.4 gm/dL (6.4-8.2)
[2019-11-06 08:00] VITALS: BP 104/72
--- NOTE | 2019-11-06 08:30 | NUR ---
Commercial Sewing Instructor in to talk to patient. Patient states lives at home with his and daughter. There are 15 steps in the home. There is a chair lift. Physician: Dr. Rach Santoyo Pharmacy: [facility] or mail order Home health services: none Patient's level of ADLs: INDEPENDENT Patient has working utilities: yes DME: life vest Follow-up physician's appointment after d/c: he prefers to make his own follow up appt after discharge Does patient want to access PORTAL?: no Discharge plan discussed with patient. He lives at home with his and daughter. There is a chair lift for the steps as his has MS. He is independent in his ADLs and ambulation. Discussed home health care services and he denies any home needs at this time. He is unsure at this time who will provide transportation on discharge but will have transportation. SUE MAYES
--- NOTE | 2019-11-06 15:41 | NUR ---
DR GOFF CALLED ABOUT PT'S HR MAINTAINING 120'S-130'S AFTER AFTERNOON DIGOXIN GIVEN. nEW ORDERS RECEIVED, SEE EMAR.
--- NOTE | 2019-11-06 15:54 | NUR ---
LOPRESSOR IV 2.5 MG ADMINISTERED PRESCRIBED FOR HR 131 AT THIS TIME. WILL MONITOR FOR EFFECTIVENESS.
[2019-11-06 16:00] VITALS: BP 111/57
[2019-11-06 20:00] VITALS: BP 111/78
--- NOTE | 2019-11-06 20:15 | NUR ---
PT RESTING IN BED. RESP-EASY AND REGULAR. TOLERATED ROUTINE MED WITH NO PROBLEM. NO C/O AT THIS TIME. CALL LIGHT IN REACH. SEE SHIFT ASSESSMENT.
--- NOTE | 2019-11-06 22:00 | NUR ---
PT RESTING IN BED. RESP-EASY AND REGULAR. NO C/O AT THIS TIME. CALL LIGHT IN REACH.
--- NOTE | 2019-11-06 22:18 | NUR ---
PT AMBULATORY TO THE DESK REQUESTING SLEEPING PILL. MEDICATED WITH AMBIEN PO PER PRN ORDER, SEE EMAR. RESTING BACK IN BED. CALL LIGHT IN REACH. SEE SHIFT ASSESSMENT.
[2019-11-07] VITALS: BP 106/82; BP 112/79
--- NOTE | 2019-11-07 06:00 | NUR ---
SLEEPING IN BED, RESP-EASY AND REGULAR. CALL LIGHT IN REACH.
[2019-11-07 08:00] VITALS: BP 122/84
[2019-11-07 08:32] LABS: BASO % 0.4 % (0.0-1.0); EOS # 0.3 10*3/uL (0.0-0.4); EOS % 3.8 % (1.0-4.0); HEMATOCRIT 34.7 % (42.0-52.0); LYMPH # 1.6 10*3/uL (1.3-4.4); LYMPH % 18.5 % (27.0-41.0); MEAN CELL VOLUME 94.8 fl (80.0-94.0); MEAN CORPUSCULAR HGB 30.1 pg (27.0-31.0); MEAN CORPUSCULAR HGB CONC 31.7 g/dl (33.0-37.0); MEAN PLATELET VOLUME 9.2 fl (9.6-12.3); MONO # 0.5 10*3/uL (0.1-1.0); MONO % 6.4 % (3.0-9.0); NEUT # 5.9 10*3/uL (2.3-7.9); NEUT % 70.5 % (47.0-73.0); PLATELET COUNT AUTOMATED 282 10*3/uL (130-400); RED BLOOD COUNT 3.66 10*6/uL (4.50-5.90); WHITE BLOOD COUNT 8.4 10*3/uL (4.8-10.8)
[2019-11-07 08:51] LABS: INTERNATIONAL NORM RATIO 4.1 (2.0-3.5)
[2019-11-07 09:02] LABS: BUN 21 mg/dl (7-24); CHLORIDE 110 mmol/L (98-107); CREATININE 1.23 mg/dL (0.70-1.30); POTASSIUM 4.4 mmol/L (3.5-5.1); SODIUM 140 mmol/L (136-145)
--- NOTE | 2019-11-07 09:30 | NUR ---
PT AWAKE, ALERT, & ORIENTED X3. LUNGS CLEAR T/O. ABD SOFT & NONTENDER. PATIENT'S HEARTRATE TACHY IN THE 110'S-120'S/A FIB. INFORMED PATIENT REGARDING CHANGES TO PT'S COREG. MEDICATED AT THIS TIME. WILL CONTINUE TO MONITOR. CALL LIGHT IS WITHIN REACH.
--- NOTE | 2019-11-07 11:00 | NUR ---
PATIENT'S HEART RHYTHM AT THIS TIME IS A FLUTTER; RATE IN THE 80'S. PT RESTING @ THIS TIME.
[2019-11-07 12:00] VITALS: BP 101/59
[2019-11-07 16:00] VITALS: BP 116/70
[2019-11-07 20:00] VITALS: BP 124/82
--- NOTE | 2019-11-07 21:43 | NUR ---
MEDICATED WITH RESTORIL PER PT'S REQUEST. CALL LIGHT WITHIN REACH.
--- NOTE | 2019-11-07 22:15 | NUR ---
RESTING IN BED WITH EYES CLOSED; VOICES NO C/O AT THIS TIME. RESTORIL APPARENTLY EFFECTIVE.
[2019-11-08] VITALS: BP 112/79
--- NOTE | 2019-11-08 06:15 | NUR ---
CALLED DR. MEJIA PERTAINING TO PT. HAVING SEVERAL RUNS OF VTACH. DR. MEJIA STATED TO INFORM DR. CORBIN.
--- NOTE | 2019-11-08 06:20 | NUR ---
INFORMED DR. CORBIN OF PATIENT HAVING SEVERAL RUNS OF VTACH.
[2019-11-08 06:52] LABS: BASO % 0.2 % (0.0-1.0); EOS # 0.3 10*3/uL (0.0-0.4); EOS % 3.9 % (1.0-4.0); HEMATOCRIT 35.7 % (42.0-52.0); LYMPH # 2.4 10*3/uL (1.3-4.4); LYMPH % 28.6 % (27.0-41.0); MEAN CORPUSCULAR HGB 30.4 pg (27.0-31.0); MEAN CORPUSCULAR HGB CONC 31.4 g/dl (33.0-37.0); MEAN PLATELET VOLUME 9.3 fl (9.6-12.3); MONO # 0.6 10*3/uL (0.1-1.0); MONO % 7.2 % (3.0-9.0); NEUT # 4.9 10*3/uL (2.3-7.9); NEUT % 59.9 % (47.0-73.0); PLATELET COUNT AUTOMATED 280 10*3/uL (130-400); RED BLOOD COUNT 3.68 10*6/uL (4.50-5.90); RED CELL DISTRI WIDTH 14.1 % (0-14.5); WHITE BLOOD COUNT 8.2 10*3/uL (4.8-10.8)
[2019-11-08 07:03] LABS: INTERNATIONAL NORM RATIO 4.2 (2.0-3.5)
[2019-11-08 07:16] LABS: BUN 18 mg/dl (7-24); CHLORIDE 110 mmol/L (98-107); CREATININE 1.12 mg/dL (0.70-1.30); POTASSIUM 4.1 mmol/L (3.5-5.1); SODIUM 139 mmol/L (136-145)
[2019-11-08 08:00] VITALS: BP 125/91
--- NOTE | 2019-11-08 08:30 | NUR ---
Enrollment Coordinator in to see patient. No new needs or request at this time. He denies any home needs. When medically stable he will be discharged to home.
[2019-11-08 12:00] VITALS: BP 130/56; BP 134/85
[2019-11-08 16:00] VITALS: BP 141/96
--- NOTE | 2019-11-08 16:27 | NUR ---
PRN IV LOPRESSOR GIVEN FOR HEART RATE 120-130'S SUSTAINED
[2019-11-08 20:00] VITALS: BP 128/91
--- NOTE | 2019-11-08 20:30 | NUR ---
SITTING AT BEDSIDE, NO ACUTE DISTRESS NOTED. RESPIRATIONS EASY. LUNGS DIMINISHED, CLEAR. PULSE OX 97% RA. LIFE VEST IN PLACE. CALL LIGHT WITHIN REACH. NO VOICED COMPLAINTS
--- NOTE | 2019-11-08 20:46 | NUR ---
24 HR chart check completed.
--- NOTE | 2019-11-08 21:31 | NUR ---
IV LOPRESSOR GIVEN FOR HR 120'S. WILL MONITOR
--- NOTE | 2019-11-08 22:00 | NUR ---
HR CURRENTLY 103
--- NOTE | 2019-11-08 22:02 | NUR ---
REQUESTED AND RECEIVED RESTORIL PER PRN ORDER TO ASSIST WITH SLEEP. WILL MONITOR
--- NOTE | 2019-11-08 23:00 | NUR ---
MEDS BECOMING EFFECTIVE. AWAKE BUT DROWSY. RESPIRATIONS EASY. CALL LIGHT WITHIN REACH. NO FURTHER VOICED COMPLAINTS
[2019-11-09] VITALS: BP 108/77
--- NOTE | 2019-11-09 | NUR ---
SLEEPING. NO DISTRESS NOTED. RESPIRATIONS EASY. VSS. CALL LIGHT WITHIN REACH. AWAKE OF NPO STATUS FOR TESTING IN AM
[2019-11-09] MEDS ORDERED: LISINOPRIL5 MG PO (00:47)
--- NOTE | 2019-11-09 01:20 | NUR ---
HR 78. PATIENT CONVERTED NSR
--- NOTE | 2019-11-09 04:00 | NUR ---
SLEEPING. NO DISTRESS NOTED. RESPIRATIONS EASY. HR 70'S. CALL LIGHT WITHIN REACH
[2019-11-09] MEDS ORDERED: TEMAZEPAM15 M1 PO (05:55)
[2019-11-09] MEDS ORDERED: CARVEDILOL25 MG PO (05:55)
[2019-11-09] MEDS ORDERED: DIGOX125 MCG PO (05:56)
[2019-11-09] MEDS ORDERED: COUMADIN2.5 M1 PO (05:56)
[2019-11-09] MEDS ORDERED: Lanoxin PO (06:13)
[2019-11-09] MEDS ORDERED: AMIODARONE HYD200 MG PO (06:14)
--- NOTE | 2019-11-09 06:15 | NUR ---
DR MEJIA HERE TO SEE PATIENT AND DISCUSS PLAN OF CARE
--- NOTE | 2019-11-09 07:25 | NUR ---
attempted to reach dr pisano regarding consult on cell and office number, busy. will pass on to on-coming nurse
[2019-11-09 08:00] VITALS: BP 110/66
--- NOTE | 2019-11-09 08:00 | NUR ---
PT OUT TO THE DESK, ASKING ABOUT HIS TEST TODAY. PT INFORMED THAT THE DOCTOR HAS NOT BEE CONTACTED YET. WILL TRY TO CONTACT DR. CORBIN AGAIN
--- NOTE | 2019-11-09 08:35 | NUR ---
DR. CORBIN NOTIFIED THAT PT HAS CONVERTED BACK TO NORMAL SINUS RHYTHM. PILO CANCELLED AND DIET ORDER PUT BACK IN. PT NOTIFIED.
--- NOTE | 2019-11-09 11:10 | NUR ---
Discharge instructions reviewed with patient/family. Patient receptive and verbalizes understanding. Follow-up care arranged. Written instructions given to patient/family. PAVAN MONTES
== END 2019-11-09 11:10 | disposition home or self-care (01) | DRG 308 ==
LOC: ED 10:28 → EDHOLD 13:38 → 5E 13:38
PROVIDERS: Emergency Medicine; ADMIT Internal Medicine
DX: I48.21 Permanent atrial fibrillation (principal); I50.21 Acute systolic (congestive) heart failure; D68.59 Other primary thrombophilia; Z95.5 Presence of coronary angioplasty implant and graft; I11.0 Hypertensive heart disease with heart failure; I25.10 Atherosclerotic heart disease of native coronary artery without angina pectoris; I25.5 Ischemic cardiomyopathy; I34.0 Nonrheumatic mitral (valve) insufficiency; E11.9 Type 2 diabetes mellitus without complications; F51.01 Primary insomnia; Z79.01 Long term (current) use of anticoagulants; Z88.0 Allergy status to penicillin; Z87.891 Personal history of nicotine dependence; Z79.899 Other long term (current) drug therapy; Z95.1 Presence of aortocoronary bypass graft

== ENCOUNTER 2019-11-18 08:06 | Inpatient (IN) | payer MEDICARE ==
[2019-11-18] VITALS (14 sets, daily range): BP systolic 114–189; BP diastolic 58–76
[~2019-11-18] VITALS: Ht 170.1 cm; Wt 80.0 kg
[~2019-11-18 08:06] MED LIST changes: +AMIODARONE HYD200 MG PO; +CARVEDILOL25 MG PO; +COREG6.25 MG PO; +COUMADIN2.5 M1 PO; +DIGOX125 MCG PO; +LISINOPRIL5 MG PO; +Lanoxin PO; +TRAZODONE50 MG PO; +WARFARIN SOD5 MG PO
[2019-11-18 08:28] LABS: BASO % 0.2 % (0.0-1.0); EOS # 0.4 10*3/uL (0.0-0.4); EOS % 2.6 % (1.0-4.0); HEMATOCRIT 33.2 % (42.0-52.0); LYMPH # 1.3 10*3/uL (1.3-4.4); LYMPH % 9.9 % (27.0-41.0); MEAN CORPUSCULAR HGB 29.5 pg (27.0-31.0); MEAN CORPUSCULAR HGB CONC 30.7 g/dl (33.0-37.0); MEAN PLATELET VOLUME 9.7 fl (9.6-12.3); MONO # 0.7 10*3/uL (0.1-1.0); MONO % 5.5 % (3.0-9.0); NEUT # 10.9 10*3/uL (2.3-7.9); NEUT % 81.5 % (47.0-73.0); PLATELET COUNT AUTOMATED 214 10*3/uL (130-400); RED BLOOD COUNT 3.46 10*6/uL (4.50-5.90); RED CELL DISTRI WIDTH 14.5 % (0-14.5); WHITE BLOOD COUNT 13.4 10*3/uL (4.8-10.8)
[2019-11-18 08:39] LABS: ALBUMIN 3.2 gm/dl (3.1-4.5); ALKALINE PHOSPHATASE 103 U/L (45-117); BUN 21 mg/dl (7-24); CHLORIDE 111 mmol/L (98-107); CREATININE 1.19 mg/dL (0.70-1.30); POTASSIUM 3.8 mmol/L (3.5-5.1); SGOT/AST 37 IU/L (3-35); SGPT/ALT 61 U/L (12-78); SODIUM 140 mmol/L (136-145)
[2019-11-18 08:40] LABS: TROPONIN I 0.022 ng/ml (<0.045)
[2019-11-18 09:20] LABS: ACT PARTIAL THROMBO TIME 53.4 SECONDS (20.0-32.1)
[2019-11-18 09:39] LABS: INTERNATIONAL NORM RATIO > 9.3 (2.0-3.5)
[2019-11-18 20:29] LABS: ACT PARTIAL THROMBO TIME 33.2 SECONDS (20.0-32.1); INTERNATIONAL NORM RATIO 2.4 (2.0-3.5)
[2019-11-19] VITALS: BP 131/54
[2019-11-19 06:12] LABS: BASO % 0.2 % (0.0-1.0); EOS # 0.4 10*3/uL (0.0-0.4); EOS % 4.4 % (1.0-4.0); HEMATOCRIT 27.7 % (42.0-52.0); LYMPH # 1.5 10*3/uL (1.3-4.4); LYMPH % 15.6 % (27.0-41.0); MEAN CELL VOLUME 95.8 fl (80.0-94.0); MEAN CORPUSCULAR HGB 30.1 pg (27.0-31.0); MEAN CORPUSCULAR HGB CONC 31.4 g/dl (33.0-37.0); MEAN PLATELET VOLUME 9.9 fl (9.6-12.3); MONO # 0.6 10*3/uL (0.1-1.0); MONO % 6.6 % (3.0-9.0); NEUT # 7.1 10*3/uL (2.3-7.9); NEUT % 72.8 % (47.0-73.0); PLATELET COUNT AUTOMATED 206 10*3/uL (130-400); RED BLOOD COUNT 2.89 10*6/uL (4.50-5.90); RED CELL DISTRI WIDTH 14.2 % (0-14.5); WHITE BLOOD COUNT 9.7 10*3/uL (4.8-10.8)
[2019-11-19 06:30] LABS: INTERNATIONAL NORM RATIO 1.5 (2.0-3.5)
[2019-11-19 06:39] LABS: BUN 21 mg/dl (7-24); CHLORIDE 107 mmol/L (98-107); SODIUM 141 mmol/L (136-145)
[2019-11-19 08:00] VITALS: BP 168/62
[2019-11-19 12:00] VITALS: BP 143/64
[2019-11-19 16:00] VITALS: BP 140/60
[2019-11-19 20:00] VITALS: BP 144/67
[2019-11-20] VITALS: BP 142/62
[2019-11-20 07:21] LABS: INTERNATIONAL NORM RATIO 1.3 (2.0-3.5)
[2019-11-20 08:00] VITALS: BP 153/59; BP 156/58
[2019-11-20] MEDS ORDERED: LASIX20 MG PO (08:29)
[2019-11-20] MEDS ORDERED: K-TAB10 MEQ PO (08:43)
== END 2019-11-20 12:11 | disposition home or self-care (01) | DRG 292 ==
LOC: ED 08:06 → EDHOLD 10:38 → 4E 10:38
PROVIDERS: Emergency Medicine; Surgery Vascular Surgery; ADMIT Internal Medicine
PROC: 30233K1 Transfusion of Nonautologous Frozen Plasma into Peripheral Vein, Percutaneous Approach (ICD-10-PCS; principal; 2019-11-18)
DX: I11.0 Hypertensive heart disease with heart failure (principal); D68.59 Other primary thrombophilia; D68.9 Coagulation defect, unspecified; S45.102A Unspecified injury of brachial artery, left side, initial encounter; I48.21 Permanent atrial fibrillation; I48.20 Chronic atrial fibrillation, unspecified; I47.2 Ventricular tachycardia; I50.43 Acute on chronic combined systolic (congestive) and diastolic (congestive) heart failure; D64.9 Anemia, unspecified; Z96.651 Presence of right artificial knee joint; S50.02XA Contusion of left elbow, initial encounter; E11.9 Type 2 diabetes mellitus without complications; I34.0 Nonrheumatic mitral (valve) insufficiency; I25.10 Atherosclerotic heart disease of native coronary artery without angina pectoris; I25.5 Ischemic cardiomyopathy; E87.6 Hypokalemia; X58.XXXA Exposure to other specified factors, initial encounter; Y93.89 Activity, other specified; Y92.89 Other specified places as the place of occurrence of the external cause; Y99.8 Other external cause status; Z88.0 Allergy status to penicillin; Z95.1 Presence of aortocoronary bypass graft; Z82.3 Family history of stroke; Z79.01 Long term (current) use of anticoagulants; Z82.49 Family history of ischemic heart disease and other diseases of the circulatory system; Z95.5 Presence of coronary angioplasty implant and graft; Z79.899 Other long term (current) drug therapy

== ENCOUNTER → 2019-12-10 | Outpatient (CLI) | payer MEDICARE ==
[~2019-12-10] MED LIST changes: +LASIX20 MG PO
== END | disposition home or self-care (01) ==
LOC: CARD 00:09
DX: I37.1 Nonrheumatic pulmonary valve insufficiency (principal); I35.0 Nonrheumatic aortic (valve) stenosis; I27.20 Pulmonary hypertension, unspecified

== ENCOUNTER → 2020-01-15 | Outpatient (CLI) | payer MEDICARE | END | disposition home or self-care (01) | LOC: RAD 09:16 | PROVIDERS: ATTEND Internal Medicine | DX: J90 Pleural effusion, not elsewhere classified (principal); R06.02 Shortness of breath; R07.9 Chest pain, unspecified ==

== ENCOUNTER 2020-04-14 08:15 | Inpatient (IN) | payer MEDICARE ==
[~2020-04-14] VITALS: Ht 170.1 cm; Wt 78.1 kg
[2020-04-14 08:20] VITALS: BP 172/80
[2020-04-14 08:56] LABS: BILIRUBIN Negative (Negative); BLOOD Trace-Intact (Negative); CLARITY Cloudy (Clear); COLOR Yellow (Yellow); GLUCOSE Negative (Negative); KETONE Trace (Negative); LEUKO ESTERASE 3+ (Negative); NITRITE Positive (Negative); PH 5.5 (4.5-8.0); SPECIFIC GRAVITY 1.015 (1.001-1.030)
[2020-04-14 09:00] LABS: BASO % 0.4 % (0.0-1.0); EOS # 0.4 10*3/uL (0.0-0.4); EOS % 3.8 % (1.0-4.0); LYMPH # 2.1 10*3/uL (1.3-4.4); LYMPH % 20.3 % (27.0-41.0); MEAN CORPUSCULAR HGB 27.8 pg (27.0-31.0); MEAN CORPUSCULAR HGB CONC 30.8 g/dl (33.0-37.0); MEAN PLATELET VOLUME 9.7 fl (9.6-12.3); MONO # 0.7 10*3/uL (0.1-1.0); MONO % 7.2 % (3.0-9.0); NEUT # 6.9 10*3/uL (2.3-7.9); PLATELET COUNT AUTOMATED 264 10*3/uL (130-400); RED CELL DISTRI WIDTH 15.7 % (0-14.5); WHITE BLOOD COUNT 10.1 10*3/uL (4.8-10.8)
[2020-04-14 09:21] LABS: BACTERIA 2+; WBC TNTC wbc/hpf (0-5)
[2020-04-14 09:35] LABS: ACT PARTIAL THROMBO TIME 30.6 SECONDS (20.0-32.1); INTERNATIONAL NORM RATIO 1.6 (2.0-3.5)
[2020-04-14 09:41] LABS: ALBUMIN 3.4 gm/dl (3.1-4.5); ALKALINE PHOSPHATASE 135 U/L (45-117); BUN 16 mg/dl (7-24); CHLORIDE 108 mmol/L (98-107); CREATININE 1.33 mg/dL (0.70-1.30); LIPASE 122 U/L (73-393); POTASSIUM 4.1 mmol/L (3.5-5.1); SGOT/AST 14 IU/L (3-35); SGPT/ALT 15 U/L (12-78); SODIUM 138 mmol/L (136-145); TOTAL PROTEIN 7.3 gm/dL (6.4-8.2)
[2020-04-14 09:45] LABS: TROPONIN I < 0.015 ng/ml (<0.045)
--- NOTE | 2020-04-14 11:24 | NUR ---
PT IS REQUESTING SOMEHTING FOR PAIN. DR. HERNANDEZ NOW AT BEDSIDE.
[2020-04-14 12:55] VITALS: BP 154/82
[2020-04-14 13:15] VITALS: BP 159/87
--- NOTE | 2020-04-14 13:15 | NUR ---
Time: 1314 A 85 year old MALE admitted to 5E under services of DR. ROBERTO FEGRUSON,MARIAM. Pt. arrived via stretcher from ER. Chief complaint: RIGHT SHOULDER PAIN AFTER FALLING AT HOME, LIMITED RANGE OF MOTION SINCE FALL. LALITO MORALEZ
--- NOTE | 2020-04-14 13:42 | NUR ---
PATIENT RETURNED FROM STRESS TEST. RESUMING DIET AND MEDS, SEE SHIFT ASSESSMENTS FOR DETAILS.
[2020-04-14] MEDS ORDERED: ZESTRIL10 MG PO (15:21)
[2020-04-14] MEDS ORDERED: WARFARIN SOD2 MG PO (15:22)
[2020-04-14] MEDS ORDERED: GLUCOPHAGE500 M1 PO (15:22)
[2020-04-14] MEDS ORDERED: COREG12.5 M1 PO (15:23)
[2020-04-14] MEDS ORDERED: VITAMIN B121000 MC1 PO (15:24)
[2020-04-14] MEDS ORDERED: LASIX40 MG PO (15:24)
[2020-04-14] MEDS ORDERED: ASPIRIN81 M1 PO (15:25)
[2020-04-14] MEDS ORDERED: VITAMIN D3 PO (15:26)
[2020-04-14] MEDS ORDERED: VITAMIN C500 M4 PO (15:26)
[2020-04-14] MEDS ORDERED: MULTIVITAMINS1 EAC6 PO (15:27)
[2020-04-14] MEDS ORDERED: NITROSTAT0.4 MG SL (15:27)
--- NOTE | 2020-04-14 15:42 | NUR ---
DR. LENZ'S OFFICE STAFF NOTIFIED OF CONSULT.
--- NOTE | 2020-04-14 15:56 | NUR ---
DR. LENZ IN TO SEE PATIENT RE: PLAN OF CARE.
--- NOTE | 2020-04-14 15:57 | NUR ---
OT NOTE Occupational therapy order received and chart reviewed. Patient adm following a fall at home and a right AC joint separation. Per OT order received, OTR to refer to ortho for WB status and precautions. Will await for further clarification from ortho MD. Thank you. Leigha Gonzalez, OTR/L
[2020-04-14 16:00] VITALS: BP 158/84
--- NOTE | 2020-04-14 16:15 | NUR ---
PHYSICAL THERAPY Nursing screen received and chart reviewed. PT order received. Patient admitted following fall at home resulting in AC joint separation. Awaiting Ortho consult for weight bearing status and further plan of care. Will follow to complete skilled PT evaluation. Thank you. Winter Lazaro,PT,DPT
--- NOTE | 2020-04-14 17:06 | NUR ---
IV SITE PULLED OUT BY PUTTING ON SWEATER EARLIER. ATTEMPTED IV RESTART X 2, UNSUCCESSFUL. PATIENT REFUSES ANY FURTHER IV STICKS.
[2020-04-14 20:00] VITALS: BP 134/57
--- NOTE | 2020-04-14 21:19 | NUR ---
MEDICATED WITH RESTORIL FOR SLEEPLESSNESS
--- NOTE | 2020-04-14 21:21 | NUR ---
PATIENT REFUSES TO USE URINAL, BEDSIDE COMMODE, OR TO WEAR NON SLIP FOOTWEAR AT THIS TIME
--- NOTE | 2020-04-14 21:34 | NUR ---
SPOKE WITH DR KRISHNAN REGARDING PAIN MEDICATION. ORDER FOR NORCO 5/325 QID PRN
--- NOTE | 2020-04-14 21:52 | NUR ---
MEDICATED WITH PRN NORCO FOR C/O RIGHT SHOULDER PAIN
--- NOTE | 2020-04-14 22:52 | NUR ---
MEDICATION EFFECTIVE PER PATIENT
[2020-04-15] VITALS: BP 150/72
--- NOTE | 2020-04-15 06:00 | NUR ---
PATIENT RESTED WELL THROUGHOUT THE NIGHT WITH NO NEEDS MADE. BED IN LOWEST POSITION, CALL LIGHT IN REACH
[2020-04-15 07:26] VITALS: BP 148/76
[2020-04-15 08:00] VITALS: BP 146/69
--- NOTE | 2020-04-15 11:22 | NUR ---
Occupational Therapy evaluation completed on five with full evaluation to follow. Recommend occupational therapy per plan of care and home with HH versus outpatient PT upon discharge. Thank you for this referral. Leigha Gonzalez OTR/L
--- NOTE | 2020-04-15 11:52 | NUR ---
Spoke with Pt Debbie who is declining SNF placement for Pt Requesting Outpatient Rehab at the [facility] set up Prior to discharge. She and her Sister will take Pt. to Outpatient Therapy.
[2020-04-15 12:00] VITALS: BP 103/42
--- NOTE | 2020-04-15 12:02 | NUR ---
PHYSICAL THERAPY Physical therapy evaluation completed. Full details and evaluation to follow. Low complextiy skilled PT evaluation performed ([id number]). PT will work on strength, gait, balance and safety per POC. Recommend home with assistance and home health vs outpatient PT services at discharge
--- NOTE | 2020-04-15 13:30 | NUR ---
OT NOTE Pt was seen this P.M. 1:1 for 15 minute OT session. Upon arrival pt was sitting upright in the recliner. Pt identified by name and and had complaints of R shoulder pain however he would not rate on 0-10 pain scale. Pt completed sit to stand from chair level with SBA. Functional mobility completed to the bathroom with SBA. There he stood while completing toileting task with SBA. He then stood sink side while washing his hands with SBA. Functional mobility completed back to the EOB with SBA. Challenged pt's dynamic standing balance while weight shifting, crossing midline, and reaching over all planes and pt was able to maintain F+ standing balance throughout. Attempted to complete susan dressing and pt declined at this time. Pt transferred sit to supine with Narendra for assist with BLE's. There he was left with call light in hand, tray table in place, and phone in reach. Continue with POC as able. ANURADHA Carter/Edmund
--- NOTE | 2020-04-15 14:21 | NUR ---
Left Voice Message for Dr. Santoyo to Notify that Pt. does not want Pt. going to Care Home. She wants him home with Outpatient Therapy.
--- NOTE | 2020-04-15 14:24 | NUR ---
Spoke with Dr. Santoyo via telephone. Pt. will return Home. Possible Discharge Tommorow and Receive Outpatient Therapy at the [facility].
--- NOTE | 2020-04-15 14:27 | NUR ---
Call Placed to the therapy Center at [place]. Faxed Demographic Information and waiting on Order from Dr. Dillard for Therapy.
[2020-04-15 16:00] VITALS: BP 152/75
[2020-04-15 17:08] LABS: INTERNATIONAL NORM RATIO 1.4 (2.0-3.5)
[2020-04-15 20:00] VITALS: BP 174/73
--- NOTE | 2020-04-15 21:18 | NUR ---
MEDICATED WITH PRN NORCO FOR RIGHT SHOULDER PAIN AND RESTORIL FOR SLEEPLESSNESS
--- NOTE | 2020-04-15 22:18 | NUR ---
PATIENT SLEEPING, MEDICATION SEEMS EFFECTIVE
[2020-04-16] VITALS: BP 109/58
--- NOTE | 2020-04-16 00:03 | NUR ---
24 HR chart check completed.
[2020-04-16 06:29] LABS: BASO % 0.2 % (0.0-1.0); EOS # 0.2 10*3/uL (0.0-0.4); EOS % 2.2 % (1.0-4.0); HEMATOCRIT 33.2 % (42.0-52.0); LYMPH # 2.3 10*3/uL (1.3-4.4); LYMPH % 21.6 % (27.0-41.0); MEAN CELL VOLUME 90.2 fl (80.0-94.0); MEAN PLATELET VOLUME 9.3 fl (9.6-12.3); MONO % 9.5 % (3.0-9.0); NEUT # 7.1 10*3/uL (2.3-7.9); NEUT % 66.3 % (47.0-73.0); PLATELET COUNT AUTOMATED 229 10*3/uL (130-400); RED BLOOD COUNT 3.68 10*6/uL (4.50-5.90); RED CELL DISTRI WIDTH 16.3 % (0-14.5); WHITE BLOOD COUNT 10.7 10*3/uL (4.8-10.8)
[2020-04-16 06:41] LABS: CREATININE 1.43 mg/dL (0.70-1.30); INTERNATIONAL NORM RATIO 1.3 (2.0-3.5)
--- NOTE | 2020-04-16 06:44 | NUR ---
DR MEJIA AWARE OF PATIENT'S PT/INR. STATES TO GIVE 5MG OF COUMADIN INSTEAD OF 2.5
--- NOTE | 2020-04-16 07:18 | NUR ---
PATIENT TAKEN OFF FLOOR FOR SCHEDULED CT.
[2020-04-16 08:00] VITALS: BP 134/66
--- NOTE | 2020-04-16 08:05 | NUR ---
OT NOTE Pt was seen this A.M. 1:1 for 20 minute OT session. Upon arrival pt was supine in bed. Pt identified by name and and had complaints of 6/10 R shoulder pain at rest and 8/10 R shoulder pain with activity. Pt transferred supine to sit EOB with Narendra for assist with upper body. While sitting EOB pt declined doffing and donning socks however did agree to adjusting B socks. Pt was able to complete with supervision while using L hand. Sit to stand completed from bed level with SBA followed by functional mobility to the bathroom with SBA. Pt simulated toileting task while standing with SBA. Throughout pt presented with F+/G- standing balance. Pt then returned to the EOB. While sitting EOB pt was educated on upper body susan dressing techniques. Pt was not willing to complete with his clothing for increased I, however was willing to at least complete using gown which he was able to complete with Narendra for assist with RUE. Pt presented with fair carry over of susan dressing technique. Pt transferred back into bed sit to supine with SBA. There he was left with call light in hand, tray table in place, and bed alarm activated for safety. Continue with POC as able. BELKIS Carter
--- NOTE | 2020-04-16 08:09 | NUR ---
Spoke with Yara in Dr. Dillard office this a.m. Advised that Dr. Santoyo plans on Discharging Pt. Home Possibly today. Yara will fax order to [facility]. Spoke with Dr. Santoyo Yesterday and Advised her of request to just Take Pt. home. Dr. Santoyo had stated at that time that Patient would discharge today with return Home. Spoke with yesterday and Advised her of possible Discharge today.
--- NOTE | 2020-04-16 08:18 | NUR ---
PHYSICAL THERAPY Patient presented to therapy in supine with head of bed elevated and bed alarm on. Patient has report of 6/10 pain in the R shoulder. Patient gives inforemd dconsent for treatment. Patient was identified by name and on wristband. Patient performed supine > sitting on EOB with MIN A X 1. Patient sat on EOB with SBA. Patient performed STS from EOB with SBA. Patient completed 5 Xs sit to stands in 8 seconds without use of the UEs. Patient ambulated with Walker for 30' x 1 with no LOB and no increased pain. Patient STS out of low chair with SBA. Patient sat on EOB ands performed seated emigdio LE ther ex 2 x 10 reps each in all planes of moveemnt for strengthening the LEs in order to improve patient's fucntional mobility. Patient performed LAQs, marches , hip abduction and heel/toe raises for strengthening the LEs. Patient completed sit EOB > supine in bed with MIN A X 1. Patient was left in bed with head of bed elevated, call ligth within reach and bed alarm on. Patient was 1:1 with this FISH STRAIGHTENER for 21 minutes total. MARIBEL FRANCOIS FISH STRAIGHTENER
--- NOTE | 2020-04-16 09:28 | NUR ---
Spoke with Dr. Dillard this a.m. Per Orders given in [employer] Yesterday. Pt. is not ordered therapy Outpatient at this time. Activity as tolerated. Right Upper Extremity, Try to limit above shoulder level activity . Ice and Sling as Necessary. Pt. to call Dr. Dillard office for appointment in 3 weeks. Provided Pt. will Dr. Dillard Business Card and Contact information to make the Appointment. Nurse will Provide Pt. with Discharge Instructions.
--- NOTE | 2020-04-16 11:32 | NUR ---
DESPITE EDUCATION, PATIENT REFUSING BED ALARM. WILL MONITOR.
[2020-04-16 12:00] VITALS: BP 122/47
--- NOTE | 2020-04-16 12:02 | NUR ---
Spoke with Dr. Santoyo via telephone concerning Need for Home Health Orders. Telephone Order received for Home Health, Nurse, PT, OT. [employer] is following.
--- NOTE | 2020-04-16 13:26 | NUR ---
OT NOTE Pt was seen this P.M. 1:1 for 15 minute OT session. Upon arrival pt was supine in bed. Pt identified by name and and had complaints of 5/10 R shoulder pain at rest and 8/10 with activity. Pt transferred supine to sit EOB with CGA. Sit to stand completed from bed level with SBA followed by functional mobility around the room with SBA. Throughout pt donned his face mask and bottoms using susan dressing technique with SBA. Challenged pt's dynamic standing balance while weight shifting, crossing midline, and reaching over all planes. Pt was able to maintain F+/G- standing balance throughout. Pt tolerated aprox 10 minutes of standing activity and then transferred back into bed sit to supine with Narendra. There he was left with call light in hand, tray table in place, and phone in reach. Continue with POC as able. ANURADHA Carter/Edmund
--- NOTE | 2020-04-16 13:50 | NUR ---
Spoke with Pt. via telephone. Informed of Dr. Natanael diehl for Home Health. Pt. provided with Choice List and Chose [facility]. Faxed Referral to [facility] along with Demographic, Current Med List, H&P and Face to Face Encounter.
--- NOTE | 2020-04-16 13:51 | NUR ---
PHYSICAL THERAPY Patient presented to therapy in supine in bed with report of continued R shoulder pain. Patient's head of bed is elevated and his bed alarm was on. Patient gives informed consent for treatment. Patient was identified by name and on wristband. Patient completed supine > sitting on EOB with MIN A X 1. Patient sat on EOB with SBA. Patient performed STS < > EOB with SBA. Patient performed gait with no assistive device and Close Supervision for 500' x 1 with no LOB even with 180 degree turns. Patient transferred back to supine in bed with MIN A X 1 for assistance with LEs. Patient is not on spO2. Patient was left in supine in bed with head of bed elevated and call light within reach. Patient was 1:1 with this POST ACUTE CARE NURSE for 17 minutes total. MARIBEL FRANCOIS POST ACUTE CARE NURSE
[2020-04-16 16:00] VITALS: BP 113/55
--- NOTE | 2020-04-16 16:34 | NUR ---
PHYSICAL THERAPY CO-SIGN I approve of the Physical Therapy notes written above. SUE RICARDO PT,DPT
[2020-04-16 20:00] VITALS: BP 133/64
--- NOTE | 2020-04-16 20:45 | NUR ---
IN TO ASSESS PATIENT. PATIENT IS PLEASANT AND COOPERATIVE WITH ASSESSMENT. PATIENT HAS NO COMPLAINTS. DENIES PAIN. ALERT AND ORIENTED. CALL LIGHT WTIHIN REACH, WILL MONITOR
--- NOTE | 2020-04-16 22:13 | NUR ---
24 HR chart check completed.
[2020-04-17] VITALS: BP 125/64
--- NOTE | 2020-04-17 00:31 | NUR ---
PATIENT REFUSING BED ALARM TO BE IN PLACE
[2020-04-17 06:42] LABS: BASO % 0.2 % (0.0-1.0); EOS # 0.2 10*3/uL (0.0-0.4); EOS % 2.5 % (1.0-4.0); HEMATOCRIT 32.8 % (42.0-52.0); LYMPH # 1.2 10*3/uL (1.3-4.4); LYMPH % 13.4 % (27.0-41.0); MEAN CELL VOLUME 87.2 fl (80.0-94.0); MEAN CORPUSCULAR HGB 27.1 pg (27.0-31.0); MEAN CORPUSCULAR HGB CONC 31.1 g/dl (33.0-37.0); MEAN PLATELET VOLUME 9.4 fl (9.6-12.3); MONO # 1.2 10*3/uL (0.1-1.0); MONO % 13.2 % (3.0-9.0); NEUT # 6.2 10*3/uL (2.3-7.9); NEUT % 70.5 % (47.0-73.0); PLATELET COUNT AUTOMATED 252 10*3/uL (130-400); RED BLOOD COUNT 3.76 10*6/uL (4.50-5.90); RED CELL DISTRI WIDTH 16.2 % (0-14.5); WHITE BLOOD COUNT 8.8 10*3/uL (4.8-10.8)
[2020-04-17 06:52] LABS: CREATININE 1.49 mg/dL (0.70-1.30)
[2020-04-17 07:13] LABS: INTERNATIONAL NORM RATIO 1.7 (2.0-3.5)
[2020-04-17 07:51] VITALS: BP 130/68
--- NOTE | 2020-04-17 07:58 | NUR ---
PT MEDICATED WITH PO NORCO PER PRN ORDER FOR C/O RIGHT SHOULDER PAIN. RATES PAIN 12/09. WILL MONITOR EFFECTIVENESS.
--- NOTE | 2020-04-17 08:08 | NUR ---
BREAKFAST TRAY SET UP FOR PATIENT.
--- NOTE | 2020-04-17 08:58 | NUR ---
NORCO EFFECTIVE PER PT. WILL CONTINUE TO MONITOR.
--- NOTE | 2020-04-17 09:15 | NUR ---
PATIENT AMBULATING IN HALLWAY WITH THERAPY.
--- NOTE | 2020-04-17 09:25 | NUR ---
OT NOTE Pt was seen this A.M. 1:1 for 16 minute OT session. Upon arrival pt was supine in bed. Pt identified by name and and had complaints of 4/10 R shoulder pain. Pt transferred supine to sit EOB with SBA. While sitting EOB pt donned his face mask with use of BUE's independent. He then doffed and donned B socks while bringing leg up to knee level and was able to complete idependent. Sit to stand completed from bed level with SBA. Pt pulled his pants up using BUE's independent. Attempted to complete UB dressing with his sweatshirt and pt declined stating "I'm good". Challenged pt's dynamic standing balance while weight shifting, crossing midline, and reaching over all planes. Pt was able to maintain F+/G- standing balance throughout. Functional mobility completed to the bathroom and back and around the room with SBA. Pt then stood while making his bed with SBA. Pt transferred back into bed sit to supine with SBA. There he was left with call light in hand, tray table in place, and phone in reach. Continue with POC as able. ANURADHA Carter/Edmund
--- NOTE | 2020-04-17 11:09 | NUR ---
PHYSICAL THERAPY Patient presented to therapy in supine in bed with head of bed flat and bed alarm off. Patient gives informed consent for treatment. Patient was identified by name and on wristband. Patient reports continued R shoulder pain level of 4/10. Patient performed supine > sitting on EOB with CGA. Patient sat on EOB with Supervision. Patient completed STS from EOB with SBA. Patient ambulated with no assistive device and Close Supervision for 600' x 1 around entire 5 th floor with no LOB and no SOB. Patient completed transfer back to supine in bed with Supervision. Patient was left in supine in bed with head of bed slightly elevated and call light within within reach. Patient was 1:1 with this COAT PRESSER for 16 minutes total. MARIBEL FRANCOIS COAT PRESSER
[2020-04-17 12:00] VITALS: BP 123/69
--- NOTE | 2020-04-17 14:00 | NUR ---
OT NOTE Pt was seen this P.M. 1:1 for 15 minute OT session. Upon arrival pt was sitting upright on the EOB. Pt identified by name and and had complaints of R shoulder pain which he did not rate on 0-10 pain scale. Pt donned face mask with use of BUE's and pants were pulled up with use of BUE's. Pt completed functional mobility around the room while presenting with G- standing balance. Pt tolerated aprox 10 minutes of activity before sitting. Pt transferred back into bed sit to supine with SBA. There he was left with call light in hand, tray table in place, and phone in reach. Continue with POC as able. ANURADHA Carter/Edmund
--- NOTE | 2020-04-17 14:10 | NUR ---
PHYSICAL THERAPY Patient presented to therapy in sitting on EOB and tray table in front of him. Patient reports continued pain in R shoulder. Patient gives informed consent for treatment. Patient was identified by name and on wristband. Patient performed STS from EOB with Supervision. Patient ambulated without assistive device and Close Supervision for 600+ ft around entire 5th floor without LOB or SOB. Patient completed sitting on EOB > supine in bed with SBA. Patient was left in supine in bed with head of bed elevated, call light within reach and tray table near patient. Patient was 1:1 with this WATER RESTORATION TECHNICIAN for 15 minutes total. MARIBEL FRANCOIS WATER RESTORATION TECHNICIAN
--- NOTE | 2020-04-17 15:35 | NUR ---
HERE TO SEE PATIENT REGARDING PLAN OF CARE.
--- NOTE | 2020-04-17 15:45 | NUR ---
PATIENT TO BE DISCHARGED TOMORROW 04/18 PER .
--- NOTE | 2020-04-17 15:51 | NUR ---
OCCUPATIONAL THERAPY CO-SIGN I approve of the Occupational Therapy notes written above. GUANAKO DE GUZMAN, OTR/L
[2020-04-17 16:00] VITALS: BP 123/64
[2020-04-17 20:00] VITALS: BP 102/87; BP 141/89
--- NOTE | 2020-04-17 20:00 | NUR ---
PATIENT RESTING IN BED. WATCHING TV. NO COMPLAINTS AT THIS TIME. DENIES ANY PAIN. STATES THAT HE HAS PAIN WITH MOVEMENT BUT IT'S NOT THAT BAD. PATIENT ALERT AND ORIENTED AND PLEASANT AND COOPERATIVE. CALL LIGHT WITHIN REACH, WILL MONITOR
[2020-04-18] VITALS: BP 122/68
--- NOTE | 2020-04-18 02:41 | NUR ---
PATIENT SLEEPING, BREATHING IS EASY AND REGULAR. CALL LIGHT WTIHIN REACH, WILL MONITOR
[2020-04-18] MEDS ORDERED: SEPTDS PO (06:25)
[2020-04-18 06:44] LABS: INTERNATIONAL NORM RATIO 2.3 (2.0-3.5)
[2020-04-18 08:00] VITALS: BP 150/76
--- NOTE | 2020-04-18 09:02 | NUR ---
OT NOTE Pt was seen this A.M. 1:1 for 15 minute OT session. Upon arrival pt was supine in bed. Pt identified by name and and had complaints of 4/10 R shoulder pain. Pt transferred supine to sit EOB with SBA. While sitting EOB pt donned B socks with SBA while using one handed technique. Attempted to complete upper body dressing using susan dressing technique and pt was not willing to complete. Pt donned face mask using BUE's. Sit to stand completed from bed level with SBA. While standing pt donned pants with BUE's. Challenged pt's dynamic standing balance while weight shifting, crossing midline, and reaching over all planes and pt was able to maintain G- standing balance. Functional mobility completed around the room and to the bathroom and back with SBA. Pt was left sitting upright on the EOB with call light in hand, tray table in place, and phone in reach. Continue with POC as able. ANURADHA Carter/Edmund
--- NOTE | 2020-04-18 09:11 | NUR ---
Notified Brisa Rosales Clerk on 5E that [facility] will see Patient tommorow.
--- NOTE | 2020-04-18 10:29 | NUR ---
Discharge Paperwork Faxed to [facility].
--- NOTE | 2020-04-18 11:17 | NUR ---
Discharge instructions reviewed with patient/family. Patient receptive and verbalizes understanding. Follow-up care arranged. Written instructions given to patient/family. ELHAM GUADALUPE
--- NOTE | 2020-04-18 13:12 | NUR ---
PHYSICAL THERAPY Patient presented to therapy in supine in bed with head of bed elevated and bed alarm off. Patient gives informed consent for treatment. Patient was identified by name and on wristband. Patient supine to sitting on EOB with SBA. Patient STS < > EOB with SBA. Patient ambulated with no assistive device for 600+ ft with no LOB and no SOB. Patient was left in supine in bed with head of bed elevated and call light within reach. Patient was 1:1 with this HOME LENDING OFFICER for 15 minutes total. MARIBEL FRANCOIS HOME LENDING OFFICER
--- NOTE | 2020-04-18 14:30 | NUR ---
OCCUPATIONAL THERAPY CO-SIGN I approve of the Occupational Therapy notes written above. GUANAKO DE GUZMAN, OTR/L
--- NOTE | 2020-04-18 14:42 | NUR ---
PHYSICAL THERAPY CO-SIGN I approve of the Physical Therapy notes written above. SUE RICARDO PT,DPT
== END 2020-04-18 11:17 | disposition home or self-care (01) | DRG 562 ==
LOC: ED 08:15 → 5E 12:13 → EDHOLD 12:13 → 5E 12:56
PROVIDERS: Emergency Medicine; ADMIT Internal Medicine; ATTEND Internal Medicine
DX: S43.121A Dislocation of right acromioclavicular joint, 100%-200% displacement, initial encounter (principal); G93.41 Metabolic encephalopathy; N39.0 Urinary tract infection, site not specified; I13.2 Hypertensive heart and chronic kidney disease with heart failure and with stage 5 chronic kidney disease, or end stage renal disease; I67.89 Other cerebrovascular disease; I42.9 Cardiomyopathy, unspecified; I48.0 Paroxysmal atrial fibrillation; R62.7 Adult failure to thrive; R26.81 Unsteadiness on feet; C61 Malignant neoplasm of prostate; I25.10 Atherosclerotic heart disease of native coronary artery without angina pectoris; N18.31 Chronic kidney disease, stage 3a; B96.20 Unspecified Escherichia coli [E. coli] as the cause of diseases classified elsewhere; E11.22 Type 2 diabetes mellitus with diabetic chronic kidney disease; I50.9 Heart failure, unspecified; I34.0 Nonrheumatic mitral (valve) insufficiency; F51.01 Primary insomnia; W18.30XA Fall on same level, unspecified, initial encounter; Z68.27 Body mass index [BMI] 27.0-27.9, adult; Y93.89 Activity, other specified; Y92.89 Other specified places as the place of occurrence of the external cause; Y99.8 Other external cause status; Z95.5 Presence of coronary angioplasty implant and graft; Z79.01 Long term (current) use of anticoagulants; Z88.0 Allergy status to penicillin

== ENCOUNTER → 2020-07-24 | Outpatient (CLI) | payer MEDICARE ==
[~2020-07-24] MED LIST changes: +COREG12.5 M1 PO; +GLUCOPHAGE500 M1 PO; +MULTIVITAMINS1 EAC6 PO; +NITROSTAT0.4 MG SL; +SEPTDS PO; +VITAMIN B121000 MC1 PO; +VITAMIN C500 M4 PO; +VITAMIN D3 PO; +WARFARIN SOD2 MG PO; +ZESTRIL10 MG PO
== END | disposition home or self-care (01) ==
LOC: CARD 09:57
PROVIDERS: ATTEND Internal Medicine Cardiovascular Disease
DX: I25.10 Atherosclerotic heart disease of native coronary artery without angina pectoris (principal)

== ENCOUNTER → 2021-09-07 | Outpatient (CLI) | payer MEDICARE | END | disposition home or self-care (01) | LOC: CARD 10:30 | PROVIDERS: ATTEND Internal Medicine | DX: I37.1 Nonrheumatic pulmonary valve insufficiency (principal) ==

== ENCOUNTER → 2022-06-30 | Outpatient (CLI) | payer MEDICARE ==
[~2022-06-30] MED LIST changes: +AMLODIPINE BESYL5 MG PO; +ELIQUIS5 M1 PO; +NOVOLIN 70100 UNIT/2 SQ; +PAXLOVID; +RIVASTIGMINE T1.5 M1 PO
[2022-06-30 11:50] LABS: BASO % 0.5 % (0.0-1.0); EOS # 0.2 10*3/uL (0.0-0.4); EOS % 3.1 % (1.0-4.0); HEMATOCRIT 38.9 % (42.0-52.0); LYMPH # 2.4 10*3/uL (1.3-4.4); LYMPH % 30.5 % (27.0-41.0); MEAN CELL VOLUME 94.4 fl (80.0-94.0); MEAN CORPUSCULAR HGB 31.8 pg (27.0-31.0); MEAN CORPUSCULAR HGB CONC 33.7 g/dl (33.0-37.0); MEAN PLATELET VOLUME 9.7 fl (9.6-12.3); MONO # 0.5 10*3/uL (0.1-1.0); MONO % 6.7 % (3.0-9.0); NEUT # 4.5 10*3/uL (2.3-7.9); NEUT % 58.9 % (47.0-73.0); PLATELET COUNT AUTOMATED 231 10*3/uL (130-400); RED BLOOD COUNT 4.12 10*6/uL (4.50-5.90); RED CELL DISTRI WIDTH 12.8 % (0-14.5); WHITE BLOOD COUNT 7.7 10*3/uL (4.8-10.8)
[2022-06-30 12:11] LABS: ALKALINE PHOSPHATASE 105 U/L (46-116); BUN 28 mg/dl (9-23); CHLORIDE 97 mmol/L (98-107); CHOLESTEROL 155 mg/dL (<200); FREE T4 1.17 ng/dl (0.89-1.76); LDL CHOLESTEROL 87 mg/dL (9-159); SGPT/ALT < 7 U/L (10-49); THYROID STIM HORMONE (HS) 1.285 uIU/ml (0.550-4.780); TOTAL PROTEIN 7.5 gm/dL (6.0-8.0); TRIGLYCERIDES 146 mg/dl (<150)
[2022-06-30 12:47] LABS: VITAMIN D, 25-HYDROXY 46.1 ng/mL (30-100)
== END | disposition home or self-care (01) ==
LOC: LAB 11:06
PROVIDERS: ATTEND Internal Medicine
DX: E11.65 Type 2 diabetes mellitus with hyperglycemia (principal); E11.649 Type 2 diabetes mellitus with hypoglycemia without coma; I10 Essential (primary) hypertension; D51.9 Vitamin B12 deficiency anemia, unspecified; Z13.820 Encounter for screening for osteoporosis; E55.9 Vitamin D deficiency, unspecified; Z13.0 Encounter for screening for diseases of the blood and blood-forming organs and certain disorders involving the immune mechanism; Z13.89 Encounter for screening for other disorder; Z13.1 Encounter for screening for diabetes mellitus; Z13.21 Encounter for screening for nutritional disorder; Z13.6 Encounter for screening for cardiovascular disorders; Z13.228 Encounter for screening for other metabolic disorders; Z12.5 Encounter for screening for malignant neoplasm of prostate

== ENCOUNTER → 2022-09-02 | Outpatient (CLI) | payer MEDICARE | END | disposition home or self-care (01) | LOC: CT 14:19 | PROVIDERS: ATTEND Internal Medicine | DX: K40.90 Unilateral inguinal hernia, without obstruction or gangrene, not specified as recurrent (principal); N32.3 Diverticulum of bladder ==

== ENCOUNTER 2023-08-27 16:34 | Emergency (ER) | payer MEDICARE ==
[~2023-08-27] VITALS: Ht 172.7 cm; Wt 68.5 kg
[2023-08-27 16:49] LABS: BASO % 0.3 % (0.0-1.0); EOS # 0.2 10*3/uL (0.0-0.4); EOS % 1.6 % (1.0-4.0); HEMATOCRIT 37.9 % (42.0-52.0); LYMPH # 2.1 10*3/uL (1.3-4.4); LYMPH % 19.6 % (27.0-41.0); MEAN CORPUSCULAR HGB 30.1 pg (27.0-31.0); MEAN CORPUSCULAR HGB CONC 31.7 g/dl (33.0-37.0); MEAN PLATELET VOLUME 9.1 fl (9.6-12.3); MONO # 0.8 10*3/uL (0.1-1.0); NEUT # 7.8 10*3/uL (2.3-7.9); NEUT % 71.3 % (47.0-73.0); PLATELET COUNT AUTOMATED 247 10*3/uL (130-400); RED BLOOD COUNT 3.99 10*6/uL (4.50-5.90); RED CELL DISTRI WIDTH 13.5 % (0-14.5); WHITE BLOOD COUNT 10.9 10*3/uL (4.8-10.8)
[2023-08-27 17:03] LABS: ALKALINE PHOSPHATASE 86 U/L (46-116); BUN 27 mg/dl (9-23); CHLORIDE 103 mmol/L (98-107); LIPASE 43 U/L (12-53); POTASSIUM 5.1 mmol/L (3.4-5.1); TOTAL PROTEIN 7.2 gm/dL (6.0-8.0)
[2023-08-27] MEDS ORDERED: FUROSEMIDE40 MG PO (17:03)
[2023-08-27] MEDS ORDERED: CARVEDILOL6.25 MG PO (17:05)
[2023-08-27] MEDS ORDERED: WARFARIN SODIU2.5 MG PO (17:05)
[2023-08-27] MEDS ORDERED: VITAMIN D325 MCG PO (17:06)
[2023-08-27 17:07] LABS: SGPT/ALT < 7 U/L (5-49)
[2023-08-27 17:35] LABS: BILIRUBIN Negative (Negative); BLOOD Negative (Negative); CLARITY Clear (Clear); COLOR Yellow (Yellow); GLUCOSE Negative (Negative); KETONE Negative (Negative); LEUKO ESTERASE Negative (Negative); NITRITE Negative (Negative)
[2023-08-27 17:57] LABS: BACTERIA TRACE; EPITHELIAL CELLS 0-2; HYALINE CAST 0-2; WBC 0-2 wbc/hpf (0-5)
[2023-08-27 18:34] VITALS: BP 128/58
== END 2023-08-27 18:13 | disposition home or self-care (01) ==
LOC: ED 16:34
PROVIDERS: Internal Medicine
DX: Z04.6 Encounter for general psychiatric examination, requested by authority (principal); F03.90 Unspecified dementia, unspecified severity, without behavioral disturbance, psychotic disturbance, mood disturbance, and anxiety; I25.10 Atherosclerotic heart disease of native coronary artery without angina pectoris; I25.2 Old myocardial infarction; K21.9 Gastro-esophageal reflux disease without esophagitis; E78.00 Pure hypercholesterolemia, unspecified; I48.91 Unspecified atrial fibrillation; I11.0 Hypertensive heart disease with heart failure; I50.9 Heart failure, unspecified; E11.9 Type 2 diabetes mellitus without complications; Z88.0 Allergy status to penicillin; Z98.890 Other specified postprocedural states